=== PATIENT | female | born 1930 | race Caucasian/White ===

== ENCOUNTER 2019-08-16 10:15 | Inpatient (IN) ==
[2019-08-16] MEDS ORDERED: fentaNYL 100 MCG/2 ML VIAL IV ONE (10:35)
[2019-08-16] MEDS ORDERED: KETOROLAC 30 MG/ML VIAL IV ONE (10:35)
--- NOTE | 2019-08-16 10:40 | Emergency Department Note ---
Back Pain HPI - General Chief Complaint: Back Pain/Injury Stated Complaint: back pain Time Seen by Provider: 08/16/19 10:24 Source: patient Mode of arrival: ambulatory Limitations: no limitations - History of Present Illness HPI Narrative: 89-year-old female with a one-week plus history of upper back pain that radiates to her chest. I have seen her one time for this as well as Dr. lagunas and she is currently on Dilaudid 4 mg for this. however it is not helping her pain-she does report modest relief with Tylenol. She reports resistance to morphine and other narcotics. Pain is severe now 10 out of 10 and she cannot get comfortable in any position. Pain is worse under bilateral breasts. when I initially saw her about a week ago we did a chest pain work-up which included CT scan of the chest-this was all negative. She has not been eating much secondary to pain. They thought perhaps she was constipated and gave some mag citrate but having l arge bowel movement did not help much. She had a small bowel movement this morning that was essentially normal. She is able to urinate without difficulty. No trauma or fever. She is diagnosed with COPD now and her daughter reports that she is been having oxygen levels done at 82 and 84% at home. She is not on home oxygen but likely needs She is chronically anticoagulated on Eliquis for atrial fibrillation - Related Data Home Medications Medication Instructions Recorded Confirmed Calcium 600-D 1 each PO DAILY 02/09/19 08/10/19 apixaban 5 mg tablet 5 mg PO BID 02/09/19 08/10/19 metoprolol succinate 50 mg 50 mg PO BID 02/09/19 08/10/19 tablet,extended release 24 hr simvastatin 10 mg tablet 5 mg PO QHS 02/09/19 08/10/19 vitamins A,C,G-fyuo-trrnwg PO 02/09/19 07/07/19 magnesium citrate 125 mg capsule 125 mg PO QDAY cap 03/11/19 08/10/19 furosemide PO BID 07/07/19 07/07/19 nebulizer medication unknown #1 ea 07/07/19 07/07/19 Previous Rx's Medication Instructions Recorded fluticasone furoate 100 1 inh INHALATION QDAY #60 each 05/26/19 mcg-vilanterol 25 mcg/dose inhalation powder HYDROcodone/APAP 5/325MG [[place] 1 tab PO Q4HP PRN #12 tab 08/10/19 5-325Mg] Ondansetron [Zofran ODT] 4 mg SL Q4HP PRN #10 tab 08/10/19 Ondansetron [Zofran ODT] 4 mg SL Q4-6HP PRN #7 tab 08/12/19 Peg 3350/Na Sulf,Bicarb,Cl/KCl 4,000 ml PO ONCE #1 oral.sabrina 08/12/19 [Golytely] traMADol [Ultram] 50 mg PO Q6HP PRN #10 tab 08/12/19 HYDROmorphone HCL [Dilaudid] 4 mg PO Q4 #20 tab 08/13/19 Allergies Allergy/AdvReac Type Severity Reaction Status Date / Time No Known Drug Allergies Allergy Verified 08/16/19 10:19 Review of Systems All systems ED: reviewed and negative except as stated. Past Medical History - Past Medical History Attestation: Yes: The following information was validated with the patient. 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 However she is not diaphoretic; actually somewhat stoic. Normocephalic atraumatic. Conjunctive are clear sclerae white and icteric. No nasal discharge or congestion. Oropharynx pink and moist. Neck is supple without lymphadenopathy or thyromegaly. Heart is irregularly irregular rhythm but normal rate. I did not appreciate a murmur. Lungs are clear to auscultation bilaterally without wheezes rales rhonchi or respiratory distress. She is on nasal cannula oxygen here. +1 pedal edema bilaterally. Multiple bruises on her arms from the Eliquis. She is alert and able to answer questions appropriately. Somewhat irritable Limitations: no limitations Course Vital Signs Temperature 97.9 F 08/16/19 10:16 Pulse Rate 96 H 08/16/19 10:16 Respiratory Rate 20 08/16/19 10:16 Blood Pressure 140/94 08/16/19 10:16 Pulse Oximetry (%) 93 08/16/19 10:16 Temperature 97.9 F 08/16/19 10:16 Pulse Rate 91 H 08/16/19 15:16 Respiratory Rate 15 08/16/19 15:16 Blood Pressure 110/67 08/16/19 15:16 Pulse Oximetry (%) 100 08/16/19 15:16 Back Pain/Injury - Lab Data Lab results reviewed: Yes I reviewed the patient's lab results. Result diagrams: 08/16/19 10:45 08/16/19 10:45 Lab Results 08/16/19 08/16/19 08/16/19 Range/Units 10:45 10:45 10:45 WBC 9.6 (4.5-11.0) K/mcL RBC 3.72 L (4.00-5.20) M/mcL Hgb 10.6 L (12.0-15.0) g/dL Hct 32.5 L (36.0-48.0) % MCV 87.4 (80.0-100.0) fL MCH 28.6 (26.0-34.0) pg MCHC 32.7 (31.0-36.0) g/dL RDW 15.6 H (11.5-14.5) % Plt Count 251 (140-440) K/mcL MPV 8.4 (7.4-10.4) fL Gran % 77.5 (38.0-78.0) % Lymph % (Auto) 10.2 L (15.5-49.0) % Crane % (Auto) 10.6 (1.0-12.0) % Eos % (Auto) 1.2 (0.0-7.0) % Baso % (Auto) 0.5 (0.0-2.0) % Gran # 7.4 (1.8-8.0) K/mcL Lymph # (Auto) 1.0 L (1.5-4.8) K/mcL Crane # (Auto) 1.0 H (0.1-0.9) K/mcL Eos # (Auto) 0.1 (0.0-0.7) K/mcL Baso # (Auto) 0.1 (0.0-0.3) K/mcL Sodium 135 (133-145) mmol/L Potassium 4.9 (3.3-5.1) mmol/L Chloride 96 (96-108) mmol/L Carbon Dioxide 27 (22-30) mmol/L Anion Gap 12.0 (8-16) BUN 25 H (8-23) mg/dl Creatinine 1.1 (0.6-1.1) mg/dl GFR Calculation 45 Glucose 100 (70-105) mg/dL Calcium 9.0 (8.6-10.4) mg/dl Total Bilirubin 0.5 (0.0-1.0) mg/dL AST 21 (0-37) U/l ALT 17 (0-40) U/l Alkaline Phosphatase 78 (39-117) U/L Troponin T < 0.01 (0-0.03) ng/ml C-Reactive Protein 6.7 H (0.0-0.8) mg/dl NT-Pro-B Natriuret Pep (0-450) pg/ml Total Protein 7.0 (5.9-8.4) gm/dL Albumin 3.5 (3.2-5.2) gm/dL Globulin 3.5 (2.2-3.7) gm/dL Albumin/Globulin Ratio 1.0 (1.0-2.3) Lipase 30 (7-60) U/L 08/16/19 Range/Units 10:45 WBC (4.5-11.0) K/mcL RBC (4.00-5.20) M/mcL Hgb (12.0-15.0) g/dL Hct (36.0-48.0) % MCV (80.0-100.0) fL MCH (26.0-34.0) pg MCHC (31.0-36.0) g/dL RDW (11.5-14.5) % Plt Count (140-440) K/mcL MPV (7.4-10.4) fL Gran % (38.0-78.0) % Lymph % (Auto) (15.5-49.0) % Crane % (Auto) (1.0-12.0) % Eos % (Auto) (0.0-7.0) % Baso % (Auto) (0.0-2.0) % Gran # (1.8-8.0) K/mcL Lymph # (Auto) (1.5-4.8) K/mcL Crane # (Auto) (0.1-0.9) K/mcL Eos # (Auto) (0.0-0.7) K/mcL Baso # (Auto) (0.0-0.3) K/mcL Sodium (133-145) mmol/L Potassium (3.3-5.1) mmol/L Chloride (96-108) mmol/L Carbon Dioxide (22-30) mmol/L Anion Gap (8-16) BUN (8-23) mg/dl Creatinine (0.6-1.1) mg/dl GFR Calculation Glucose (70-105) mg/dL Calcium (8.6-10.4) mg/dl Total Bilirubin (0.0-1.0) mg/dL AST (0-37) U/l ALT (0-40) U/l Alkaline Phosphatase (39-117) U/L Troponin T (0-0.03) ng/ml C-Reactive Protein (0.0-0.8) mg/dl NT-Pro-B Natriuret Pep 6443.0 H (0-450) pg/ml Total Protein (5.9-8.4) gm/dL Albumin (3.2-5.2) gm/dL Globulin (2.2-3.7) gm/dL Albumin/Globulin Ratio (1.0-2.3) Lipase (7-60) U/L - Radiology Data Radiology results reviewed: Yes I reviewed the patient's radiology results. Thoracic MRI shows T7 acute osteoporotic fracture and we see fluid in her lungs as well so chest x-ray is ordered Chest x-ray shows evidence of new CHF with pleural effusion Disposition Pt seen by [employer]PER[employer]PAR[employer]/PA only: No Clinical Impression: Chronic anticoagulation, Pleural effusion, Hypoxia CHF (congestive heart failure) Qualifiers: Heart failure type: unspecified Heart failure chronicity: acute on chronic Qualified Code(s): I50.9 - Heart failure, unspecified Compression fracture of T7 vertebra Qualifiers: Encounter type: subsequent encounter Fracture healing: with delayed healing Qualified Code(s): S22.060G - Wedge compression fracture of T7-T8 vertebra, subsequent encounter for fracture with delayed healing Atrial fibrillation Qualifiers: Atrial fibrillation type: unspecified persistent Qualified Code(s): I48.19 - Other persistent atrial fibrillation; I48.1 - Persistent atrial fibrillation Summary: I discussed this case with Dr. Chapa who initially feel the patient complaint. He recommended MRI of the thoracic spine which we will accomplish today. In the meantime we will give her some fentanyl and Toradol. Laboratory work-up as well She required oxygen here for O2 saturations in the high 80s at rest at times MRI of the thoracic spine shows T7 acute osteoporotic fracture. She did get some relief with the fentanyl and Toradol. She received a milligram of Ativan as well for claustrophobia and the MRI. MRI also shows pleural effusions so chest x-ray is ordered along with troponin and BNP. Furosemide is ordered 40 mg on top of her normal 20. Additional history is noted that patient is up about 20 pounds above her normal at home weight Chest x-ray shows pleural effusion on the right-pulmonary vascular prominence. Evidence of new CHF. She was able to urinate more with furosemide I discussed the case with Dr. Killian, interventional pain business consultant. He agreed to consult on the patient and possibly do vertebroplasty on her in 48 hours but we will need to hold her Eliquis I discussed the case with Dr. Wilson, our hospitalist. He agreed to accept the patient for further care and evaluation in the hospital-she requires hospitaliz ation for acute on chronic CHF with hypoxia and pleural effusions. She will get further care for her vertebral compression fracture at the time as well Disposition: Xfer As Inpt ([facility]) Condition: Serious Referrals: Mikki Huang MD [Primary Care Provider] -
[2019-08-16 11:12] LABS: Basophils # (Auto) 0.1 K/mcL (0.0-0.3); Basophils % (Auto) 0.5 % (0.0-2.0); Eosinophils # (Auto) 0.1 K/mcL (0.0-0.7); Eosinophils % (Auto) 1.2 % (0.0-7.0); Granulocytes % (Auto) 77.5 % (38.0-78.0); Hematocrit 32.5 % (36.0-48.0); Hemoglobin 10.6 g/dL (12.0-15.0); Lymphocytes % (Auto) 10.2 % (15.5-49.0); Mean Cell Volume 87.4 fL (80.0-100.0); Mean Corpuscular HGB Conc 32.7 g/dL (31.0-36.0); Mean Platelet Volume 8.4 fL (7.4-10.4); Monocytes % (Auto) 10.6 % (1.0-12.0); Platelet Count 251 K/mcL (140-440); RBC 3.72 M/mcL (4.00-5.20); Red Cell Distribution Width 15.6 % (11.5-14.5); WBC 9.6 K/mcL (4.5-11.0)
[2019-08-16 11:30] LABS: ALT/SGPT 17 U/l (0-40); AST/SGOT 21 U/l (0-37); Albumin 3.5 gm/dL (3.2-5.2); Alkaline Phosphatase 78 U/L (39-117); Bilirubin,Total 0.5 mg/dL (0.0-1.0); Blood Urea Nitrogen 25 mg/dl (8-23); C-Reactive Protein 6.7 mg/dl (0.0-0.8); Carbon Dioxide 27 mmol/L (22-30); Chloride 96 mmol/L (96-108); Globulin 3.5 gm/dL (2.2-3.7); Glomerular Filtration Rate 45; Glucose 100 mg/dL (70-105)
[2019-08-16] MEDS ORDERED: LORazepam 2 MG/ML VIAL IV ONE (11:36)
--- NOTE | 2019-08-16 13:13 | Magnetic Resonance Report ---
CLINICAL INFORMATION: Known osteoporosis. Acute mid thoracic pain with anterior chest radiation COMPARISON: Chest CTA 08/10/2019 and chest x-ray 08/09/2019 TECHNIQUE: Sagittal T2, sagittal T1 FLAIR, sagittal STIR and axial T2 images were acquired of the thoracic spine. FINDINGS: Moderate T7 compression fracture with approximately 50% loss vertebral height. There is edema throughout the vertebral body extending to pedicle roots appreciated indicating the fracture is acute.. It is anatomically aligned.. Minimal chronic wedging of the T3-T6 T8-T9 vertebral bodies is unchanged. There is normal marrow signal at each of these remaining vertebral bodies compatible with mild chronic osteoporotic compression fractures. Accentuation of the normal kyphotic curve due to the thoracic vertebral wedging is unchanged. The thoracic cord is normal in contour and caliber with homogeneous signal. All thoracic discs to mild degeneration, but no evidence of disc extrusion or protrusion. The central canal, lateral recess and IV foraminal are normal with at each level. 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 Soft tissues are significant for moderate right and small left pleural effusion which are new from plain films one week ago 08/10/2019 IMPRESSION: 1. Moderate T7 acute osteoporotic compression fracture with approximately 50% loss of vertebral height. This should be the reason for acute mid back pain with anterior chest radiation. Mild chronic compression fractures at T3-T6 and T8-T9 are all stable radiographically with normal marrow signal 2. Moderate right and small left pleural effusion - new from a chest x-ray only one week prior. Suggest: repeat two view chest x-ray to ensure the absence of CHF or other process Interpreted and Authenticated by: Andre Chapa 08/16/19
[2019-08-16] MEDS ORDERED: FUROSEMIDE 40 MG/4 ML VIAL IV ONE ×2 (13:25→20:30)
--- NOTE | 2019-08-16 13:50 | XRay Report ---
CLINICAL INFORMATION: CHF COMPARISON: 08/10/2019 FINDINGS: The heart is mildly enlarged - increased previous study. Mitral annular calcification again noted. Mediastinum is unremarkable. The pulmonary vessels are now mildly distended and there is now mild interstitial edema. Small right and tiny left pleural effusions noted. IMPRESSION: Mild/moderate CHF - new Interpreted and Authenticated by: Andre Chapa 08/16/19
[2019-08-16] MEDS ORDERED: METHOCARBAMOL 1,000 MG/10 ML VIAL IV PRN (16:03)
[2019-08-16] MEDS ORDERED: METOPROLOL TARTRATE 5 MG/5 ML VIAL IV PRN (16:03)
[2019-08-16] MEDS ORDERED: LIDOCAINE PATCH TOPICAL SCH (16:03)
[2019-08-16] MEDS ORDERED: ACETAMINOPHEN 650 MG/65 ML BOTTLE IV PRN (16:04)
--- NOTE | 2019-08-16 16:11 | Internal Med History&Physical ---
Medical - H&P: HPI Patient information: Note initiated : 08/16/19 at 4:06 pm Service Date, if different from initiated Date: [] Patient: Lana Leavitt 89 y/o F admitted on for back pain. Chief Complaint: [] History of present illness: Ms. Leavitt is a 89 year old F Who presents the ED again for back pain radiating to her chest. She been in and out of the ER several times the past week for complaints of abdominal pain back pain chest pain. She said CT of the chest and as well as abdominal films ultr asound and lumbar MRI images show degenerative joint and no other acute pathology patient was treated for constipation. She presents today because she just has the severe back pain which she rated 10 out of 10. She is also more short of breath which has been progressing over the past few weeks. But is made worse by the acute pain. She is diagnosed with H fibrillation CHF a year ago at [facility]. In the ED here the MRI of the thoracic spine showed pleural effusions and x-ray was done which showed edema. Per the daughter she has had more edema in her thighs lately. She has COPD and refuses to be evaluated for home oxygen though she has a family members occasionally short of breath. Oxygen at home has been as low as 86 and typically is 88-91. In the ED they recorded oxygen saturation of the lower 80s. The thoracic MRI showed acute T7 fracture. Case was also discussed with Dr. Ruano for potential vertebroplasty eventually. Troponin was unremarkable. She reports that she first noticed the pain in the back when she was doing dishes a week ago, he was bending over at that time. She had occasional nausea from the pain and sweats. She has some pain in the chest wall under the left breast Review of Systems: Pertinent positives as above. Denies headache/fever/chills/vomiting/abdominal pain/cough/diarrhea. Remaining 10 point review of system reviewed negative Medical - H&P: [facility] Medical history: Medical History (Last Reviewed 07/07/19 @ 11:08 by GEMMA Richardson) History of tobacco use (Chronic) Age-related macular degeneration (Chronic) Persistent atrial fibrillation (Chronic) Hemorrhoids (Chronic) Adenomatous polyp (Chronic) Osteoporosis (Chronic ~12/31/18) Actinic keratosis (Chronic ~12/31/18) COPD exacerbation (Chronic) COPD (chronic obstructive pulmonary disease) (Chronic) Macular degeneration (Chronic) Head injury (Chronic ~194) Premature ventricular contractions (Chronic) Osteoarthritis (Chronic) Mild mitral regurgitation (Chronic) Hyperlipidemia (Chronic) Paroxysmal atrial fibrillation (Chronic) Shortness of breath (Chronic) Chest pain (Chronic) Atrial fibrillation (Chronic) CHF (congestive heart failure) (Acute) Heart disease (Acute) Hypertension (Acute) Past Surgical History (Last Reviewed 07/07/19 @ 11:08 by GEMMA Richardson) History of appendectomy (Chronic ~1947) History of back surgery (Chronic) History of bladder surgery (Chronic ~2001) History of cardiac cath (Chronic) History of colonoscopy (Chronic) History of dilatation and curettage (Chronic ~1977) History of hysterectomy (Chronic ~2000) History of left heart catheterization (Chronic) History of repair of rotator cuff (Chronic ~2004) History of surgery (Chronic ~1993) History of surgery (Chronic ~1967) History of tonsillectomy and adenoidectomy (Chronic ~1948) History of tonsillectomy (Inactive ~194) Family History (Last Reviewed 07/07/19 @ 11:08 by GEMMA Richardson) Mother No problems noted. Other Family history of Alzheimer's disease Family history of CHF (congestive heart failure) Family history of chronic obstructive lung disease Family history of heart disease Family history of multiple sclerosis Social History (Last Updated 07/07/19 @ 11:11 by GEMMA Richardson) Patient quit smoking in 2018 drinks alcohol rarely does not use a cane or walker to ambulate normally but is been using lately. Lives at home with her Medical - H&P: Meds Home Medications Medication Instructions Recorded Confirmed Type Calcium 600-D 1 each PO DAILY 02/09/19 08/16/19 History apixaban 5 mg tablet 5 mg PO BID 02/09/19 08/16/19 History metoprolol succinate 50 mg 50 mg PO BID 02/09/19 08/16/19 History tablet,extended release 24 hr simvastatin 10 mg tablet 5 mg PO QHS 02/09/19 08/16/19 History vitamins A,C,A-rkpp-kbtcmi PO 02/09/19 07/07/19 History magnesium citrate 125 mg capsule 125 mg PO QDAY cap 03/11/19 08/16/19 History fluticasone furoate 100 1 inh INHALATION QDAY #60 each 05/26/19 08/16/19 Rx mcg-vilanterol 25 mcg/dose inhalation powder furosemide 20 mg PO BID 07/07/19 08/16/19 History nebulizer medication unknown #1 ea 07/07/19 07/07/19 History HYDROcodone/APAP 5/325MG [[place] 1 tab PO Q4HP PRN #12 tab 08/10/19 08/16/19 Rx 5-325Mg] Ondansetron [Zofran ODT] 4 mg SL Q4HP PRN #10 tab 08/10/19 08/16/19 Rx Ondansetron [Zofran ODT] 4 mg SL Q4-6HP PRN #7 tab 08/12/19 08/16/19 Rx Peg 3350/Na Sulf,Bicarb,Cl/KCl 4,000 ml PO ONCE #1 oral.sabrina 08/12/19 08/16/19 Rx [Golytely] traMADol [Ultram] 50 mg PO Q6HP PRN #10 tab 08/12/19 08/16/19 Rx HYDROmorphone HCL [Dilaudid] 4 mg PO Q4 #20 tab 08/13/19 08/16/19 Rx Fluticasone/Vilanterol [[place] 1 puff PO DAILY 08/16/19 08/16/19 History Ellipta 100-25 Mcg INH] Sennosides [Senna Laxative] 8.6 mg PO ONCE 08/16/19 08/16/19 History Allergies Allergy/AdvReac Type Severity Reaction Status Date / Time No Known Drug Allergies Allergy Verified 08/16/19 10:19 Medical - H&P: Exam - Constitutional Vitals: Temp Pulse Resp BP Pulse Ox 97.9 F 92 H 15 127/81 100 08/16/19 10:16 08/16/19 15:42 08/16/19 15:42 08/16/19 15:42 08/16/19 15:42 Medical - H&P: Reslt - Labs CBC & Chem 7: 08/16/19 10:45 08/16/19 10:45 Labs: Short CBC 08/16/19 Range/Units 10:45 WBC 9.6 (4.5-11.0) K/mcL Hgb 10.6 L (12.0-15.0) g/dL Hct 32.5 L (36.0-48.0) % Plt Count 251 (140-440) K/mcL BMP 08/16/19 10:45 Sodium 135 Potassium 4.9 Chloride 96 Carbon Dioxide 27 BUN 25 H Creatinine 1.1 Glucose 100 Calcium 9.0 Cardiac Enzymes 08/16/19 Range/Units 10:45 Troponin T < 0.01 (0-0.03) ng/ml Liver Function 08/16/19 Range/Units 10:45 Total Bilirubin 0.5 (0.0-1.0) mg/dL AST 21 (0-37) U/l ALT 17 (0-40) U/l Alkaline Phosphatase 78 (39-117) U/L Albumin 3.5 (3.2-5.2) gm/dL - Impressions Thoracic MRI showing acute fracture T7 and old compression fractures Medical - H&P: A/P - Narrative A/P Narrative: A: *Acute on chronic diastolic CHF: -follows with Dr. Orosco, is on toprol and lasix *Hypoxic respiratory failure: 2/2 above *Acute T7 compression Fx and chronic comp fx's: *Intractable back pain: 2/2 above *COPD: likely needs home oxygen, but pt has been resistant *Obesity: *anemia, chronic: *Afib: on Eliquis and Toprol * P: -iv lasix -monitor i/o's weights -echo pending -BB -wean oxygen -prn nebs -RT to assess for home O2 prior to d/c if goes home instead of SNF, likely needs SNF -lidoderm patch, Fentanyl patch, robaxin prn, oxycodone for breakthrough, Tylenol prn -per daughter, narcotics do not seem to typically take effect with her, usually requires higher doses -TLSO brace prn -Dr Ruano aware of pt, if pain unable to be controlled will discuss with him again, potential for vertebroplasty -bowel regimen -pt/ot -CM for placement -ppx: home eliquis
[2019-08-16] MEDS ORDERED: POLYETHYLENE GLYCOL 3350 17 GM PACKET PO PRN (16:26)
[2019-08-16] MEDS ORDERED: IPRATROPIUM/ALBUTEROL 3 ML AMPUL.NEB NEB PRN (16:26)
[2019-08-16] MEDS ORDERED: LACTULOSE 20 GM/30 ML ORAL.SOL PO PRN (16:26)
[2019-08-16] MEDS ORDERED: POTASSIUM CHLORIDE 40 MEQ in DEXTROSE 5% IN WATER 500 ML IV PRN (16:26)
[2019-08-16] MEDS ORDERED: traMADol 50 MG TABLET PO PRN (16:26)
[2019-08-16] MEDS ORDERED: POTASSIUM CHLORIDE 20 MEQ TABLET PO PRN ×2 (16:26)
[2019-08-16] MEDS ORDERED: ONDANSETRON 4 MG/2 ML VIAL IV PRN (16:26)
[2019-08-16] MEDS ORDERED: MAGNESIUM CITRATE 300 ML ORAL.SOL PO PRN (16:26)
[2019-08-16] MEDS ORDERED: PROMETHAZINE 25 MG TABLET PO PRN (16:26)
[2019-08-16] MEDS ORDERED: MAGNESIUM SULFATE 2 GM/50 ML BAG IV PRN (16:26)
[2019-08-16] MEDS ORDERED: fentaNYL 25 MCG PATCH TOPICAL SCH ×2 (16:30→17:00)
[2019-08-16] MEDS ORDERED: fentaNYL 12 MCG PATCH TOPICAL SCH (17:15)
[2019-08-16] MEDS: LIDOCAINE PATCH TOPICAL SCH (17:28)
[2019-08-16] MEDS: HYDROmorphone 2 MG/ML VIAL IV PRN ×2 (19:13→21:14)
[2019-08-16] MEDS ORDERED: SENNOSIDES 1 TABLET PO PRN (21:00)
[2019-08-16] MEDS ORDERED: FUROSEMIDE 20 MG PO SCH (21:00)
[2019-08-16] MEDS ORDERED: METOPROLOL SUCCINATE 50 MG TAB.XL.24H PO SCH (21:00)
[2019-08-16] MEDS: SIMVASTATIN 10 MG TABLET PO SCH (21:02)
[2019-08-16] MEDS: APIXABAN 5 MG TABLET PO SCH (21:02)
[2019-08-16] MEDS: DOCUSATE SODIUM 100 MG CAPSULE PO SCH (21:02)
[2019-08-16] MEDS: 0.9 % SODIUM CHLORIDE 10 ML SYRINGE IV SCH (21:03)
[2019-08-17] MEDS: HYDROmorphone 2 MG/ML VIAL IV PRN ×5 (02:08→22:31)
[2019-08-17] MEDS: 0.9 % SODIUM CHLORIDE 10 ML SYRINGE IV SCH ×5 (05:14→22:10)
[2019-08-17 05:49] LABS: Basophils # (Auto) 0.1 K/mcL (0.0-0.3); Eosinophils # (Auto) 0.4 K/mcL (0.0-0.7); Eosinophils % (Auto) 4.6 % (0.0-7.0); Granulocytes % (Auto) 67.8 % (38.0-78.0); Hematocrit 31.7 % (36.0-48.0); Hemoglobin 10.5 g/dL (12.0-15.0); Lymphocytes # (Auto) 1.1 K/mcL (1.5-4.8); Mean Cell Volume 87.8 fL (80.0-100.0); Mean Corpuscular HGB Conc 33.1 g/dL (31.0-36.0); Mean Platelet Volume 8.9 fL (7.4-10.4); Monocytes % (Auto) 12.6 % (1.0-12.0); Platelet Count 227 K/mcL (140-440); RBC 3.61 M/mcL (4.00-5.20); Red Cell Distribution Width 15.6 % (11.5-14.5)
[2019-08-17 06:29] LABS: ALT/SGPT 14 U/l (0-40); AST/SGOT 18 U/l (0-37); Albumin 3.1 gm/dL (3.2-5.2); Alkaline Phosphatase 72 U/L (39-117); Bilirubin,Direct < 0.2 mg/dL (0.0-0.3); Bilirubin,Total 0.5 mg/dL (0.0-1.0); Blood Urea Nitrogen 25 mg/dl (8-23); Calcium 8.9 mg/dl (8.6-10.4); Carbon Dioxide 30 mmol/L (22-30); Chloride 97 mmol/L (96-108); Glomerular Filtration Rate 40; Glucose 85 mg/dL (70-105); Lactate Dehydrogenase 241 U/L (94-250); Phosphorous 3.8 mg/dL (2.7-4.5); Triglycerides 84 mg/dl (<150); Uric Acid 7.6 mg/dL (2.5-8.0)
--- NOTE | 2019-08-17 07:47 | Internal Med Progress Note ---
Medical - PN: Subj Patient information: Note initiated : 08/17/19 at 7:40 am Service Date, if different from initiated Date: [] Patient: Lana Leavitt 89 y/o F admitted on 08/16/19 for back pain. Chief Complaint: [] Interval history: Ms. Leavitt is a 89 year old F Who presents the ED again for back pain radiating to her chest. She been in and out of the ER several times the past week for complaints of abdominal pain back pain chest pain. She said CT of the chest and as well as abdominal films ultra sound and lumbar MRI images show degenerative joint and no other acute pathology patient was treated for constipation. She presents today because she just has the severe back pain which she rated 10 out of 10. She is also more short of breath which has been progressing over the past few weeks. But is made worse by the acute pain. She is diagnosed with H fibrillation CHF a year ago at [place]. In the ED here the MRI of the thoracic spine showed pleural effusions and x-ray was done which showed edema. Per the daughter she has had more edema in her thighs lately. She has COPD and refuses to be evaluated for home oxygen though she has a family members occasionally short of breath. Oxygen at home has been as low as 86 and typically is 88-91. In the ED they recorded oxygen saturation of the lower 80s. The thoracic MRI showed acute T7 fracture. Case was also discussed with Dr. Ruano for potential vertebroplasty eventually. Troponin was unremarkable. She reports that she first noticed the pain in the back when she was doing dishes a week ago, he was bending over at that time. She had occasional nausea from the pain and sweats. She has some pain in the chest wall under the left breast 08/17 Seem to sleep well last night. But complains of pain in her back this morning and appears uncomfortable. She has shortness of breath. She says about the same as yesterday. Good urine output overnight. Chest x-ray with improved. Denies cough. Review of Systems: denies headache/fever/chills/nausea/vomiting/chest or abdominal pain/cough/diarrhea. Otherwise see above. - Constitutional Vitals: Vital Signs Temp Pulse Resp BP Pulse Ox 98.8 F 93 H 20 98/74 99 08/17/19 04:00 08/16/19 21:41 08/17/19 04:00 08/17/19 04:00 08/17/19 04:00 Period Temp Pulse Resp BP Sys/Ding Pulse Ox Last 24 Hr 97.4 F-98.8 F 72-146 10-23 92-141/59-101 93-100 Intake and Output 08/16/19 08/17/19 08/17/19 21:59 05:59 13:59 Intake Total 240 220 Output Total 975 975 Balance -735 -755 Weight 81.25 kg Intake & Output: Intake & Output 08/16/19 08/17/19 08/17/19 21:59 05:59 13:59 Intake Total 240 220 Output Total 975 975 Balance -735 -755 Weight 81.25 kg Intake: Oral 240 220 Output: Urine Catheter Amount 300 975 Void Amount 675 Other: Meal Dinner Percent of Meal Consumed 50% Feeding Ability Needs Supervision Urine Appearance Clear Clear Uretheral (Alonso) Clear Urine Color Pale Pale Uretheral (Alonso) Pale Exam: General: Alert, Awake, No acute Distress, obese Eyes/N/T: EOMI, Head/Neck: neck supple, JVD CV: irreg irreg, No murmurs, Pulm: Clear b/l, no wheezing/rhonchi/rales Abd: soft, nontender, +BS x4 Ext: no clubbing/cyanosis, 1+ b/l LE edema Neuro: Alert, no focal deficits, moves all extremities, Skin: warm/dry Medical - PN: Obj Da - Labs CBC & Chem 7: 08/17/19 03:53 08/17/19 03:53 Labs: Abnormal Lab Results 08/17/19 08/17/19 08/16/19 03:53 03:53 10:45 RBC 3.61 L Hgb 10.5 L Hct 31.7 L RDW 15.6 H Lymph % (Auto) 14.0 L [place] % (Auto) 12.6 H Lymph # (Auto) 1.1 L [place] # (Auto) 1.0 H BUN 25 H Creatinine 1.2 H C-Reactive Protein NT-Pro-B Natriuret Pep 6443.0 H Albumin 3.1 L 08/16/19 08/16/19 10:45 10:45 RBC 3.72 L Hgb 10.6 L Hct 32.5 L RDW 15.6 H Lymph % (Auto) 10.2 L [place] % (Auto) Lymph # (Auto) 1.0 L [place] # (Auto) 1.0 H BUN 25 H Creatinine C-Reactive Protein 6.7 H NT-Pro-B Natriuret Pep Albumin Meds: Medications Albuterol/Ipratropium (Duoneb) 3 ml NEB Q4HP PRN PRN Reason: Shortness Of Breath Apixaban (Eliquis) 5 mg PO BID [facility] Last Admin: 08/16/19 21:02 Dose: 5 mg Documented by: Docusate Sodium (Colace) 100 mg PO BID [facility] Last Admin: 08/16/19 21:02 Dose: 100 mg Documented by: Fentanyl (Duragesic) 12 mcg TOPICAL Q72H [facility] Furosemide (Lasix) 40 mg IV BIDD [facility] Hydromorphone HCl (Dilaudid) 0 mg IV Q2HP PRN PRN Reason: Pain Last Admin: 08/17/19 05:47 Dose: 0.5 mg Documented by: Acetaminophen (Ofirmev) 650 mg in 65 mls @ 130 mls/hr IV Q6HP PRN; Protocol PRN Reason: PAIN/FEVER > 101 Potassium Chloride 40 meq/ (Dextrose) 520 mls @ 130 mls/hr IV UD PRN PRN Reason: Potassium < 3 Magnesium Sulfate (Magnesium Sulfate) 2 gm in 50 mls @ 50 mls/hr IV UD PRN PRN Reason: Magnesium </= 1.6 Lactulose (Cephulac) 10 gm PO DAILYP PRN PRN Reason: Constipation Lidocaine (Lidoderm) 1 patch TOPICAL DAILY@1000 [facility] Last Admin: 08/16/19 17:28 Dose: 1 patch Documented by: Magnesium Citrate (Citroma) 125 ml PO DAILYP PRN PRN Reason: Constipation Methocarbamol (Robaxin) 750 mg IV Q6HP PRN PRN Reason: Muscle Spasm Metoprolol Succinate (Toprol Xl) 50 mg PO BID [facility] Last Admin: 08/16/19 21:02 Dose: 50 mg Documented by: Metoprolol Tartrate (Lopressor) 5 mg IV Q2HP PRN PRN Reason: Tachyarrhythmias HR>110 Ondansetron HCl (Zofran) 4 mg IV Q4HP PRN PRN Reason: Nausea And Vomiting Oxycodone HCl (Roxicodone) 5 mg PO Q4HP PRN PRN Reason: PAIN LEVEL 3-6 Fluticasone/Vilanterol [Breo Ellipta 100-25 Mcg Inhaler] 1 dose INH DAILY [facility] Polyethylene Glycol (Miralax) 17 gm PO DAILYP PRN PRN Reason: Constipation Polyethylene Glycol (Miralax) 17 gm PO DAILY [facility] Potassium Chloride (Kdur) 40 meq PO UD PRN PRN Reason: Potssium is 3-3.5 Potassium Chloride (Kdur) 40 meq PO UD PRN PRN Reason: Potassium < 3 Promethazine HCl (Phenergan) 0 mg PO Q6HP PRN PRN Reason: Nausea And Vomiting Senna (Senokot) 2 tab PO HSP PRN PRN Reason: Constipation Simvastatin (Zocor) 5 mg PO HS [facility] Last Admin: 08/16/19 21:02 Dose: 5 mg Documented by: Sodium Chloride (Saline Flush) 10 ml IV Q8 [facility] Last Admin: 08/17/19 05:14 Dose: 10 ml Documented by: Medical - PN: A/P - Time Spent With Patient Total time spent is greater than 50% in coordination of care (as documented) at patient's floor/unit and/or counseling patient: - Narrative A/P Narrative: A: *Acute on chronic diastolic CHF: -follows with Dr. Orosco, is on toprol and lasix *Hypoxic respiratory failure: 2/2 above -improving *Acute T7 compression Fx and chronic comp fx's: *Intractable back pain: 2/2 above *COPD: likely needs home oxygen, but pt has been resistant *Obesity: *anemia, chronic: *Afib: on Eliquis and Toprol *CKD III: P: -iv lasix -monitor i/o's weights -echo pending -BB -wean oxygen -prn nebs -RT to assess for home O2 prior to d/c if goes home instead of SNF, likely needs SNF -lidoderm patch, Fentanyl patch, robaxin prn, oxycodone for breakthrough, Tylenol prn -per daughter, narcotics do not seem to typically take effect with her, usually requires higher doses -TLSO brace prn -Dr Ruano aware of pt, if pain unable to be controlled will discuss with him again, potential for vertebroplasty. Family asked to meet with him today, nurse to contact Dr. Whatley's office -bowel regimen -pt/ot -CM for placement -ppx: home eliquis Medical - PN: Qual - VTE Deep Vein Thrombosis/Pulmonary Embolism Present on Admission: No
[2019-08-17] MEDS ORDERED: FUROSEMIDE 40 MG/4 ML VIAL IV SCH (08:00)
[2019-08-17] MEDS: METOPROLOL TARTRATE 5 MG/5 ML VIAL IV PRN (08:03)
--- NOTE | 2019-08-17 08:14 | XRay Report ---
CLINICAL INFORMATION: f/u chf COMPARISON: 08/16/2019 FINDINGS: Heart has decreased and is now only mildly enlarged. Mitral annular calcification again seen. Mediastinum is normal. Pulmonary vessels have returned normal in caliber. Interstitial edema has nearly cleared. Small right pleural effusion persists IMPRESSION: Interval resolution of CHF. Small persistent right pleural effusion Interpreted and Authenticated by: Andre Chapa 08/17/19
[2019-08-17] MEDS: POLYETHYLENE GLYCOL 3350 17 GM PACKET PO SCH (08:30)
[2019-08-17] MEDS: APIXABAN 5 MG TABLET PO SCH (08:30)
[2019-08-17] MEDS: DOCUSATE SODIUM 100 MG CAPSULE PO SCH ×2 (08:30→20:04)
[2019-08-17] MEDS ORDERED: NON FORMULARY MEDICATION 1 DOSE MISCELL (Fluticasone/Vilanterol [Breo Ellipta 100-25 Mcg I PO SCH (09:00)
[2019-08-17] MEDS ORDERED: METOPROLOL SUCCINATE 25 MG TAB.XL.24H PO SCH (09:00)
[2019-08-17] MEDS ORDERED: METOPROLOL SUCCINATE 25 MG TAB.XL.24H PO ONE (09:15)
[2019-08-17] MEDS ORDERED: ALBUMIN HUMAN 12.5 GM/50 ML BAG IV ONE (09:25)
[2019-08-17] MEDS ORDERED: FUROSEMIDE 40 MG/4 ML VIAL IV ONE (09:25)
[2019-08-17] MEDS: ACETAMINOPHEN 650 MG/65 ML BOTTLE IV PRN ×2 (11:25→12:07)
[2019-08-17] MEDS: fentaNYL 25 MCG PATCH TOPICAL SCH (11:34)
[2019-08-17] MEDS: METHOCARBAMOL 1,000 MG/10 ML VIAL IV PRN ×2 (11:35→19:46)
[2019-08-17] MEDS: LIDOCAINE PATCH TOPICAL SCH (11:36)
[2019-08-17] MEDS: Fluticasone/Vilanterol [Breo Ellipta 100-25 Mcg Inhaler] INH SCH (11:37)
[2019-08-17] MEDS: oxyCODONE HCL 5 MG TABLET PO PRN ×2 (17:07→20:51)
[2019-08-17] MEDS: METOPROLOL SUCCINATE 50 MG TAB.XL.24H PO SCH (20:04)
[2019-08-17] MEDS: SIMVASTATIN 10 MG TABLET PO SCH (20:04)
[2019-08-18] MEDS: oxyCODONE HCL 5 MG TABLET PO PRN ×5 (00:32→21:47)
[2019-08-18] MEDS: 0.9 % SODIUM CHLORIDE 10 ML SYRINGE IV SCH ×4 (01:13→22:05)
[2019-08-18] MEDS: METHOCARBAMOL 1,000 MG/10 ML VIAL IV PRN ×4 (01:13→23:35)
[2019-08-18] MEDS: HYDROmorphone 2 MG/ML VIAL IV PRN ×3 (05:56→22:04)
[2019-08-18 06:14] LABS: ALT/SGPT 13 U/l (0-40); AST/SGOT 17 U/l (0-37); Alkaline Phosphatase 66 U/L (39-117); Bilirubin,Direct < 0.2 mg/dL (0.0-0.3); Bilirubin,Total 0.5 mg/dL (0.0-1.0); Blood Urea Nitrogen 20 mg/dl (8-23); Calcium 8.5 mg/dl (8.6-10.4); Carbon Dioxide 30 mmol/L (22-30); Chloride 97 mmol/L (96-108); Globulin 2.9 gm/dL (2.2-3.7); Glomerular Filtration Rate 57; Glucose 86 mg/dL (70-105); Lactate Dehydrogenase 270 U/L (94-250); Phosphorous 3.7 mg/dL (2.7-4.5); Triglycerides 74 mg/dl (<150); Uric Acid 7.5 mg/dL (2.5-8.0)
--- NOTE | 2019-08-18 07:55 | Internal Med Progress Note ---
Medical - PN: Subj Patient information: Note initiated : 08/18/19 at 7:53 am Service Date, if different from initiated Date: [] Patient: Lana Leavitt 89 y/o F admitted on 08/16/19 for back pain. Chief Complaint: [] Interval history: Ms. Leavitt is a 89 year old F Who presents the ED again for back pain radiating to her chest. She been in and out of the ER several times the past week for complaints of abdominal pain back pain chest pain. She said CT of the chest and as well as abdominal films ultr asound and lumbar MRI images show degenerative joint and no other acute pathology patient was treated for constipation. She presents today because she just has the severe back pain which she rated 10 out of 10. She is also more short of breath which has been progressing over the past few weeks. But is made worse by the acute pain. She is diagnosed with H fibrillation CHF a year ago at [place]. In the ED here the MRI of the thoracic spine showed pleural effusions and x-ray was done which showed edema. Per the daughter she has had more edema in her thighs lately. She has COPD and refuses to be evaluated for home oxygen though she has a family members occasionally short of breath. Oxygen at home has been as low as 86 and typically is 88-91. In the ED they recorded oxygen saturation of the lower 80s. The thoracic MRI showed acute T7 fracture. Case was also discussed with Dr. Ruano for potential vertebroplasty eventually. Troponin was unremarkable. She reports that she first noticed the pain in the back when she was doing dishes a week ago, he was bending over at that time. She had occasional nausea from the pain and sweats. She has some pain in the chest wall under the left breast 08/17 Seem to sleep well last night. But complains of pain in her back this morning and appears uncomfortable. She has shortness of breath. She says about the same as yesterday. Good urine output overnight. Chest x-ray with improved. Denies cough. 08/18-patient seen in room. No overnight events. Resting comfortably. Persistent back pain however much improved on continued fentanyl patch/Robaxin/Tylenol and lidocaine patch. Pain clinic Dr. Ruano aware of patient and will consult if patient does not improve. Await family meeting with Dr. Flinders. Stable labs and vitals - Constitutional Vitals: Vital Signs Temp Pulse Resp BP Pulse Ox 97.6 F 97 H 20 134/101 90 08/18/19 07:27 08/17/19 09:34 08/18/19 07:27 08/18/19 07:27 08/18/19 07:27 Period Temp Pulse Resp BP Sys/Ding Pulse Ox Last 24 Hr 97.6 F-98.8 F 97 16-20 97-134/65-101 90-97 Intake and Output 08/17/19 08/18/19 08/18/19 21:59 05:59 13:59 Intake Total 185 180 Output Total 500 850 Balance -315 -670 Weight 174 lb 6.4 oz Intake & Output: Intake & Output 08/17/19 08/18/19 08/18/19 21:59 05:59 13:59 Intake Total 185 180 Output Total 500 850 Balance -315 -670 Weight 174 lb 6.4 oz Intake: IV 65 Oral 120 180 Output: Urine Catheter Amount 500 850 Other: Meal Dinner Percent of Meal Consumed 50% Feeding Ability Assist with Tray Set Up Urine Appearance Clear Clear Uretheral (Alonso) Clear Urine Color Pale Bright Yellow Uretheral (Alonso) Pale Stool Size Smear Stool Color Brown General appearance: no acute distress, obese Exam: Alert oriented Minimal discomfort Nonlabored breathing No telemetry events Medical - PN: Obj Da - Labs CBC & Chem 7: 08/17/19 03:53 08/18/19 04:00 Labs: Abnormal Lab Results 08/18/19 08/17/19 08/17/19 04:00 03:53 03:53 RBC 3.61 L Hgb 10.5 L Hct 31.7 L RDW 15.6 H Lymph % (Auto) 14.0 L [place] % (Auto) 12.6 H Lymph # (Auto) 1.1 L [place] # (Auto) 1.0 H BUN 25 H Creatinine 1.2 H Calcium 8.5 L Lactate Dehydrogenase 270 H C-Reactive Protein NT-Pro-B Natriuret Pep Albumin 3.0 L 3.1 L 08/16/19 08/16/19 08/16/19 10:45 10:45 10:45 RBC 3.72 L Hgb 10.6 L Hct 32.5 L RDW 15.6 H Lymph % (Auto) 10.2 L [place] % (Auto) Lymph # (Auto) 1.0 L [place] # (Auto) 1.0 H BUN 25 H Creatinine Calcium Lactate Dehydrogenase C-Reactive Protein 6.7 H NT-Pro-B Natriuret Pep 6443.0 H Albumin Meds: Medications Albuterol/Ipratropium (Duoneb) 3 ml NEB Q4HP PRN PRN Reason: Shortness Of Breath Last Admin: 08/17/19 09:29 Dose: 3 ml Documented by: Docusate Sodium (Colace) 100 mg PO BID [facility] Last Admin: 08/17/19 20:04 Dose: 100 mg Documented by: Fentanyl (Duragesic) 25 mcg TOPICAL Q72H [facility] Last Admin: 08/17/19 11:34 Dose: 25 mcg Documented by: Hydromorphone HCl (Dilaudid) 0 mg IV Q2HP PRN PRN Reason: Pain Last Admin: 08/18/19 05:56 Dose: 0.5 mg Documented by: Acetaminophen (Ofirmev) 650 mg in 65 mls @ 130 mls/hr IV Q6HP PRN; Protocol PRN Reason: PAIN/FEVER > 101 Last Infusion: 08/17/19 18:37 Dose: Infused Documented by: Potassium Chloride 40 meq/ (Dextrose) 520 mls @ 130 mls/hr IV UD PRN PRN Reason: Potassium < 3 Magnesium Sulfate (Magnesium Sulfate) 2 gm in 50 mls @ 50 mls/hr IV UD PRN PRN Reason: Magnesium </= 1.6 Lactulose (Cephulac) 10 gm PO DAILYP PRN PRN Reason: Constipation Lidocaine (Lidoderm) 1 patch TOPICAL DAILY@1000 [facility] Last Admin: 08/17/19 11:36 Dose: 1 patch Documented by: Magnesium Citrate (Citroma) 125 ml PO DAILYP PRN PRN Reason: Constipation Methocarbamol (Robaxin) 750 mg IV Q6HP PRN PRN Reason: Muscle Spasm Last Admin: 08/18/19 01:13 Dose: 750 mg Documented by: Metoprolol Succinate (Toprol Xl) 50 mg PO BID [facility] Last Admin: 08/17/19 20:04 Dose: 50 mg Documented by: Metoprolol Tartrate (Lopressor) 5 mg IV Q2HP PRN PRN Reason: Tachyarrhythmias HR>110 Last Admin: 08/17/19 08:03 Dose: 5 mg Documented by: Ondansetron HCl (Zofran) 4 mg IV Q4HP PRN PRN Reason: Nausea And Vomiting Oxycodone HCl (Roxicodone) 5 mg PO Q4HP PRN PRN Reason: PAIN LEVEL 3-6 Last Admin: 08/18/19 07:32 Dose: 5 mg Documented by: Fluticasone/Vilanterol [Breo Ellipta 100-25 Mcg Inhaler] 1 dose INH DAILY [facility] Last Admin: 08/17/19 11:37 Dose: Not Given Documented by: Polyethylene Glycol (Miralax) 17 gm PO DAILYP PRN PRN Reason: Constipation Polyethylene Glycol (Miralax) 17 gm PO DAILY [facility] Last Admin: 08/17/19 08:30 Dose: 17 gm Documented by: Potassium Chloride (Kdur) 40 meq PO UD PRN PRN Reason: Potssium is 3-3.5 Potassium Chloride (Kdur) 40 meq PO UD PRN PRN Reason: Potassium < 3 Promethazine HCl (Phenergan) 0 mg PO Q6HP PRN PRN Reason: Nausea And Vomiting Senna (Senokot) 2 tab PO HSP PRN PRN Reason: Constipation Simvastatin (Zocor) 5 mg PO HS [facility] Last Admin: 08/17/19 20:04 Dose: 5 mg Documented by: Sodium Chloride (Saline Flush) 10 ml IV Q8 [facility] Last Admin: 08/18/19 05:08 Dose: 10 ml Documented by: Medical - PN: A/P - Time Spent With Patient Total time spent is greater than 50% in coordination of care (as documented) at patient's floor/unit and/or counseling patient: 25 - 35 minutes - Narrative A/P Narrative: A: * Acute T7 compression fracture-pain clinic Dr. Killian consulted for possible vertebroplasty. Currently on Robaxin/Lidoderm/fentanyl. Multimodal pain management. * Acute on chronic diastolic CHF: Well compensated. follows with Dr. Orosco, continue Lasix/beta-nahomi. Echocardiogram moderate pulmonary hypertension with preserved EF at 65% * Hypoxic respiratory failure: 2/2 above and a combination of COPD. On 2 L oxygen * Intractable back pain: 2/2 above * COPD: On 2 L oxygen. Patient does not use home oxygen. Continue bronchodilators * Obesity * anemia, chronic * Afib: on Eliquis and Toprol * CKD III: * Prophylaxis on Eliquis Plan * Await pain clinic consult * Continue diuresis * Wean oxygen as tolerated * Pain management * per daughter, narcotics do not seem to typically take effect with her, usually requires higher doses * TLSO brace prn * Dr Ruano aware of pt, if pain unable to be controlled will discuss with him again, potential for vertebroplasty. Await family meeting with Dr. Ruano, * Continue PT OT * Case management coordinate transfer to SNF Medical - PN: Qual - VTE Deep Vein Thrombosis/Pulmonary Embolism Present on Admission: No
[2019-08-18] MEDS ORDERED: ENOXAPARIN 60 MG/0.6 ML SYRINGE SQ ONE (09:15)
[2019-08-18] MEDS: LIDOCAINE PATCH TOPICAL SCH (09:57)
[2019-08-18] MEDS: METOPROLOL SUCCINATE 50 MG TAB.XL.24H PO SCH ×2 (09:57→21:47)
[2019-08-18] MEDS: POLYETHYLENE GLYCOL 3350 17 GM PACKET PO SCH (09:57)
[2019-08-18] MEDS: DOCUSATE SODIUM 100 MG CAPSULE PO SCH ×2 (09:57→21:47)
[2019-08-18] MEDS: Fluticasone/Vilanterol [Breo Ellipta 100-25 Mcg Inhaler] INH SCH (10:13)
[2019-08-18 15:14] LABS: Appearance,Urine CLEAR; Bacteria,Urine 0 /hpf (0); Bilirubin,Urine NEG (NEG); Color,Urine STRAW; Culture Indicated,Urine NO; Glucose,Urine (UA) NEGATIVE (NEG); Ketones,Urine NEG (NEG); Leukocyte Esterase,Urine NEG /uL (NEG); Mucus,Urine FEW /hpf (0); Nitrate,Urine NEG (NEG); Protein,Urine NEG (NEG); Specific Gravity,Urine 1.008 (1.000-1.035); Urine Blood >=1.0 mg/dL (<0.03); Urine RBC < 1 /hpf (0-1); Urine Squamous Epithelial Cell 0 /hpf (0-4); Urine WBC 1 /hpf (0-4); Urobilinogen,Urine NEG (NEG)
[2019-08-18] MEDS: SIMVASTATIN 10 MG TABLET PO SCH (21:47)
[2019-08-18] MEDS: ACETAMINOPHEN 650 MG/65 ML BOTTLE IV PRN (21:48)
[2019-08-19] MEDS: oxyCODONE HCL 5 MG TABLET PO PRN ×5 (02:08→21:08)
[2019-08-19] MEDS: ACETAMINOPHEN 650 MG/65 ML BOTTLE IV PRN ×2 (03:45→12:13)
[2019-08-19] MEDS: HYDROmorphone 2 MG/ML VIAL IV PRN ×5 (03:45→16:34)
[2019-08-19] MEDS: 0.9 % SODIUM CHLORIDE 10 ML SYRINGE IV SCH ×3 (05:25→20:09)
[2019-08-19 05:38] LABS: Basophils # (Auto) 0.1 K/mcL (0.0-0.3); Basophils % (Auto) 0.9 % (0.0-2.0); Eosinophils # (Auto) 0.3 K/mcL (0.0-0.7); Eosinophils % (Auto) 3.9 % (0.0-7.0); Granulocytes % (Auto) 66.7 % (38.0-78.0); Hematocrit 30.9 % (36.0-48.0); Hemoglobin 10.3 g/dL (12.0-15.0); Lymphocytes # (Auto) 1.5 K/mcL (1.5-4.8); Lymphocytes % (Auto) 18.4 % (15.5-49.0); Mean Corpuscular HGB Conc 33.2 g/dL (31.0-36.0); Mean Platelet Volume 8.8 fL (7.4-10.4); Monocytes # (Auto) 0.8 K/mcL (0.1-0.9); Monocytes % (Auto) 10.1 % (1.0-12.0); Platelet Count 242 K/mcL (140-440)
[2019-08-19] MEDS ORDERED: ceFAZolin 2 GM in DEXTROSE 5% IN WATER 50 ML IV SCH (06:00)
[2019-08-19 06:02] LABS: ALT/SGPT 14 U/l (0-40); AST/SGOT 19 U/l (0-37); Albumin 3.1 gm/dL (3.2-5.2); Albumin/Globulin Ratio 1.1 (1.0-2.3); Alkaline Phosphatase 64 U/L (39-117); Bilirubin,Direct < 0.2 mg/dL (0.0-0.3); Bilirubin,Total 0.4 mg/dL (0.0-1.0); Blood Urea Nitrogen 16 mg/dl (8-23); Calcium 8.9 mg/dl (8.6-10.4); Carbon Dioxide 31 mmol/L (22-30); Chloride 99 mmol/L (96-108); Globulin 2.8 gm/dL (2.2-3.7); Glomerular Filtration Rate 50; Glucose 85 mg/dL (70-105); Lactate Dehydrogenase 250 U/L (94-250); Phosphorous 3.4 mg/dL (2.7-4.5); Triglycerides 74 mg/dl (<150); Uric Acid 6.8 mg/dL (2.5-8.0)
[2019-08-19] MEDS: METHOCARBAMOL 1,000 MG/10 ML VIAL IV PRN ×2 (06:41→12:49)
[2019-08-19] MEDS: Fluticasone/Vilanterol [Breo Ellipta 100-25 Mcg Inhaler] INH SCH (07:04)
[2019-08-19] MEDS ORDERED: PROPOFOL 200 MG/20 ML VIAL IV ONE (07:46)
[2019-08-19] MEDS ORDERED: fentaNYL 100 MCG/2 ML VIAL IV ONE (07:46)
[2019-08-19] MEDS ORDERED: LIDOCAINE W/EPI 1% 20 ML VIAL IJ ONE (08:05)
[2019-08-19] MEDS: POLYETHYLENE GLYCOL 3350 17 GM PACKET PO SCH (08:36)
[2019-08-19] MEDS: DOCUSATE SODIUM 100 MG CAPSULE PO SCH ×2 (08:37→20:08)
[2019-08-19] MEDS: METOPROLOL SUCCINATE 50 MG TAB.XL.24H PO SCH ×2 (08:37→20:08)
--- NOTE | 2019-08-19 09:15 | Brief Operative Note ---
Date of procedure: 08/19/19 Pre-op Diagnosis: Other (Osteoporotic compression fracture) Post-op diagnosis: same Procedure: Other (T7 vertebroplasty) Anesthesia: MAC Complications: none Surgeon: Maurice Ruano Estimated blood loss (cc): 5 Condition: stable Disposition: ICU
[2019-08-19] MEDS: LIDOCAINE PATCH TOPICAL SCH (09:19)
--- NOTE | 2019-08-19 09:54 | Operative Note ---
DATE OF OPERATION: 08/19/2019 PREOPERATIVE DIAGNOSIS: Intractable back pain secondary to osteoporotic compression fracture T7. POSTOPERATIVE DIAGNOSIS: Intractable back pain secondary to osteoporotic compression fracture T7. PROCEDURE: T7 vertebroplasty. SURGEON: Maurice Ruano MD ANESTHESIA: Monitored anesthesia care. ESTIMATED BLOOD LOSS: Less than 5 mL COMPLICATIONS: None. SUMMARY OF PROCEDURE: After informed consent, the patient was given prophylactic antibiotics and taken to the operating room where she was positioned prone on the OR table. Pressure points were protected. The thoracic region was prepped and draped in normal sterile manner. After adequate sedation utilizing fluoroscopy, landmarks were identified. A skin wheal was raised over the right T7 pedicle deep infiltration with 5 mL of 1% lidocaine with epinephrine 1:200,000. A 13 gauge 6 inch Jamshidi needle was directed downward contacting the right T7 pedicle. The trocar was advanced anteromedially under fluoroscopic guidance until the tip approached the anterior third of the vertebral body. Methyl methacrylate was then prepared using the [employer] system under fluoroscopic guidance while viewing laterally. Cement was injected. A total of 2 mL was used to fill the vertebral body. AP and lateral views were taken and the trocar was removed. Sterile dressings applied at the entrance site. The patient was positioned supine and taken back to the ICU in stable condition. CGF:heena Job ID: [id number] Doc ID: [id number] Maurice Ruano MD
[2019-08-19] MEDS ORDERED: fentaNYL 12 MCG PATCH TOPICAL SCH (10:00)
--- NOTE | 2019-08-19 10:11 | XRay Report ---
CLINICAL INFORMATION: VERTEBROPLASTY COMPARISON: Thoracic spine MRI 08/16/2019 FINDINGS: Digital images from the OR show a large bore needle extending through the left T7 pedicle with the tip of the needle within the T7 vertebral body. Final lateral images show barium methacrylate contained within the vertebral body IMPRESSION: T7 vertebroplasty with barium methacrylate confined to the T7 vertebral body - no extravasation Interpreted and Authenticated by: Andre Chapa 08/19/19
[2019-08-19] MEDS: APIXABAN 5 MG TABLET PO SCH ×2 (12:13→20:08)
[2019-08-19] MEDS: METOPROLOL TARTRATE 5 MG/5 ML VIAL IV PRN ×2 (16:57→17:45)
[2019-08-19] MEDS: SIMVASTATIN 10 MG TABLET PO SCH (20:08)
--- NOTE | 2019-08-19 21:42 | Internal Med Progress Note ---
Medical - PN: Subj Patient information: Note initiated : 08/19/19 at 9:42 pm Service Date, if different from initiated Date: [] Patient: Lana Leavitt 89 y/o F admitted on 08/16/19 for back pain. Chief Complaint: [] Interval history: Ms. Leavitt is a 89 year old F Who presents the ED again for back pain radiating to her chest. She been in and out of the ER several times the past week for complaints of abdominal pain back pain chest pain. She said CT of the chest and as well as abdominal films ultr asound and lumbar MRI images show degenerative joint and no other acute pathology patient was treated for constipation. She presents today because she just has the severe back pain which she rated 10 out of 10. She is also more short of breath which has been progressing over the past few weeks. But is made worse by the acute pain. She is diagnosed with H fibrillation CHF a year ago at [place]. In the ED here the MRI of the thoracic spine showed pleural effusions and x-ray was done which showed edema. Per the daughter she has had more edema in her thighs lately. She has COPD and refuses to be evaluated for home oxygen though she has a family members occasionally short of breath. Oxygen at home has been as low as 86 and typically is 88-91. In the ED they recorded oxygen saturation of the lower 80s. The thoracic MRI showed acute T7 fracture. Case was also discussed with Dr. Ruano for potential vertebroplasty eventually. Troponin was unremarkable. She reports that she first noticed the pain in the back when she was doing dishes a week ago, he was bending over at that time. She had occasional nausea from the pain and sweats. She has some pain in the chest wall under the left breast 08/17 Seem to sleep well last night. But complains of pain in her back this morning and appears uncomfortable. She has shortness of breath. She says about the same as yesterday. Good urine output overnight. Chest x-ray with improved. Denies cough. 08/18-patient seen in room. No overnight events. Resting comfortably. Persistent back pain however much improved on continued fentanyl patch/Robaxin/Tylenol and lidocaine patch. Pain clinic Dr. Ruano aware of patient and will consult if patient does not improve. Await family meeting with Dr. Flinders. Stable labs and vitals 08/19-patient underwent vertebroplasty T7 by Dr. Ruano. Currently on aggressive pain intervention including fentanyl/oxycodone/Tylenol/tramadol/lidocaine patch. Pain much improved. Able to ambulate. Mild radiation pain at the T7 dermatome. Family at bedside. Anticipate discharge in 24 hours if continues to improve clinically. Will follow-up with pain clinic as outpatient. - Constitutional Vitals: Vital Signs Temp Pulse Resp BP Pulse Ox 97.9 F 105 H 16 110/74 96 08/19/19 20:00 08/19/19 15:57 08/19/19 19:16 08/19/19 18:41 08/19/19 18:41 Period Temp Pulse Resp BP Sys/Ding Pulse Ox Last 24 Hr 97.9 F-98.9 F 87-105 14-20 99-142/55-126 91-100 Intake and Output 08/19/19 08/19/19 08/19/19 05:59 13:59 21:59 Intake Total 130 115 720 Output Total 275 2 375 Balance -145 113 345 Weight 180 lb Patient Weight 08/20/19 05:59 Weight 180 lb Intake & Output: Intake & Output 08/19/19 08/19/19 08/19/19 05:59 13:59 21:59 Intake Total 130 115 720 Output Total 275 2 375 Balance -145 113 345 Weight 180 lb Intake: IV 130 115 Ancef 2 gm In Dextrose 5% in 50 Water 50 ml @ 100 mls/hr IV PREOP [facility] Rx#:[id number] Oral 720 Output: Void Amount 275 2 375 Other: Meal Lunch Percent of Meal Consumed 25% Feeding Ability Independent Urine Appearance Clear Clear Urine Color Bright Yellow Pale Stool Size Small Moderate Small Stool Color Brown Brown Brown Stool Consistency Soft Soft Loose Formed Formed # Voids 1 # Bowel Movements 1 1 General appearance: no acute distress Exam: Alert oriented Nonlabored breathing Minimal anxiety Minimal discomfort No lymphedema Basilar crackles Medical - PN: Obj Da - Labs CBC & Chem 7: 08/19/19 03:44 08/19/19 03:44 Labs: Abnormal Lab Results 08/19/19 08/19/19 08/18/19 03:44 03:44 14:40 RBC 3.50 L Hgb 10.3 L Hct 30.9 L RDW 16.0 H Lymph % (Auto) Yell % (Auto) Lymph # (Auto) Yell # (Auto) Carbon Dioxide 31 H BUN Creatinine Calcium Lactate Dehydrogenase Albumin 3.1 L Urine Occult Blood >=1.0 A 08/18/19 08/17/19 08/17/19 04:00 03:53 03:53 RBC 3.61 L Hgb 10.5 L Hct 31.7 L RDW 15.6 H Lymph % (Auto) 14.0 L Yell % (Auto) 12.6 H Lymph # (Auto) 1.1 L Yell # (Auto) 1.0 H Carbon Dioxide BUN 25 H Creatinine 1.2 H Calcium 8.5 L Lactate Dehydrogenase 270 H Albumin 3.0 L 3.1 L Urine Occult Blood Meds: Medications Albuterol/Ipratropium (Duoneb) 3 ml NEB Q4HP PRN PRN Reason: Shortness Of Breath Last Admin: 08/17/19 09:29 Dose: 3 ml Documented by: Apixaban (Eliquis) 5 mg PO BID [facility] Last Admin: 08/19/19 20:08 Dose: 5 mg Documented by: Docusate Sodium (Colace) 100 mg PO BID [facility] Last Admin: 08/19/19 20:08 Dose: 100 mg Documented by: Fentanyl (Duragesic) 25 mcg TOPICAL Q72H [facility] Last Admin: 08/17/19 11:34 Dose: 25 mcg Documented by: Hydromorphone HCl (Dilaudid) 0 mg IV Q2HP PRN PRN Reason: Pain Last Admin: 08/19/19 16:34 Dose: 0.75 mg Documented by: Acetaminophen (Ofirmev) 650 mg in 65 mls @ 130 mls/hr IV Q6HP PRN; Protocol PRN Reason: PAIN/FEVER > 101 Last Infusion: 08/19/19 12:45 Dose: Infused Documented by: Potassium Chloride 40 meq/ (Dextrose) 520 mls @ 130 mls/hr IV UD PRN PRN Reason: Potassium < 3 Magnesium Sulfate (Magnesium Sulfate) 2 gm in 50 mls @ 50 mls/hr IV UD PRN PRN Reason: Magnesium </= 1.6 Lactulose (Cephulac) 10 gm PO DAILYP PRN PRN Reason: Constipation Lidocaine (Lidoderm) 1 patch TOPICAL DAILY@1000 [facility] Last Admin: 08/19/19 09:19 Dose: 1 patch Documented by: Magnesium Citrate (Citroma) 125 ml PO DAILYP PRN PRN Reason: Constipation Methocarbamol (Robaxin) 750 mg IV Q6HP PRN PRN Reason: Muscle Spasm Last Admin: 08/19/19 12:49 Dose: 750 mg Documented by: Metoprolol Succinate (Toprol Xl) 50 mg PO BID [facility] Last Admin: 08/19/19 20:08 Dose: 50 mg Documented by: Metoprolol Tartrate (Lopressor) 5 mg IV Q2HP PRN PRN Reason: Tachyarrhythmias HR>110 Last Admin: 08/19/19 17:45 Dose: 5 mg Documented by: Ondansetron HCl (Zofran) 4 mg IV Q4HP PRN PRN Reason: Nausea And Vomiting Oxycodone HCl (Roxicodone) 5 mg PO Q4HP PRN PRN Reason: PAIN LEVEL 3-6 Last Admin: 08/19/19 21:08 Dose: 5 mg Documented by: Fluticasone/Vilanterol [Breo Ellipta 100-25 Mcg Inhaler] 1 dose INH DAILY [facility] Last Admin: 08/19/19 07:04 Dose: Not Given Documented by: Polyethylene Glycol (Miralax) 17 gm PO DAILYP PRN PRN Reason: Constipation Polyethylene Glycol (Miralax) 17 gm PO DAILY [facility] Last Admin: 08/19/19 08:36 Dose: 17 gm Documented by: Potassium Chloride (Kdur) 40 meq PO UD PRN PRN Reason: Potssium is 3-3.5 Potassium Chloride (Kdur) 40 meq PO UD PRN PRN Reason: Potassium < 3 Promethazine HCl (Phenergan) 0 mg PO Q6HP PRN PRN Reason: Nausea And Vomiting Senna (Senokot) 2 tab PO HSP PRN PRN Reason: Constipation Simvastatin (Zocor) 5 mg PO HS [facility] Last Admin: 08/19/19 20:08 Dose: 5 mg Documented by: Sodium Chloride (Saline Flush) 10 ml IV Q8 [facility] Last Admin: 08/19/19 20:09 Dose: 10 ml Documented by: Medical - PN: A/P - Time Spent With Patient Total time spent is greater than 50% in coordination of care (as documented) at patient's floor/unit and/or counseling patient: 25 - 35 minutes - Narrative A/P Narrative: A: * Acute T7 compression fracture-status post T7 vertebroplasty by Dr. Ruano. Improved pain control postprocedure on continued opioid/tramadol and Tylenol. Continue multimodal pain management. * Acute on chronic diastolic CHF: Well compensated. follows with Dr. Orosco, continue Lasix/beta-nahomi. Echocardiogram moderate pulmonary hypertension with preserved EF at 65%. Continue diuresis * Hypoxic respiratory failure: 2/2 above and a combination of COPD. On 2 L oxygen as needed * Intractable back pain: 2/2 above * COPD: On 2 L oxygen. Patient does not use home oxygen. Continue bronchodilators * Obesity * anemia, chronic * Afib: on Eliquis and Toprol * CKD III: * Prophylaxis on Eliquis Plan * Continue pain management * Wean oxygen as tolerated and use during activity * PT OT/nutrition support * per daughter, narcotics do not seem to typically take effect with her, usually requires higher doses * TLSO brace prn(patient reluctant to use) * Recommend following up with pain clinic as outpatient on discharg * Case management coordinating transfer to SNF Medical - PN: Qual - VTE Deep Vein Thrombosis/Pulmonary Embolism Present on Admission: No
[2019-08-20] MEDS: oxyCODONE HCL 5 MG TABLET PO PRN ×3 (00:39→08:36)
[2019-08-20] MEDS: 0.9 % SODIUM CHLORIDE 10 ML SYRINGE IV SCH (05:08)
[2019-08-20] MEDS ORDERED: FLU VACC QS2019-20(6MOS UP)/PF 60 MCG/0.5 ML SYRINGE IM ONE (08:11)
[2019-08-20] MEDS: DOCUSATE SODIUM 100 MG CAPSULE PO SCH (08:34)
[2019-08-20] MEDS: APIXABAN 5 MG TABLET PO SCH (08:35)
[2019-08-20] MEDS: POLYETHYLENE GLYCOL 3350 17 GM PACKET PO SCH (08:36)
[2019-08-20] MEDS: METOPROLOL SUCCINATE 50 MG TAB.XL.24H PO SCH (08:36)
[2019-08-20] MEDS: fentaNYL 25 MCG PATCH TOPICAL SCH (08:37)
[2019-08-20] MEDS: LIDOCAINE PATCH TOPICAL SCH (08:37)
[2019-08-20] MEDS: Fluticasone/Vilanterol [Breo Ellipta 100-25 Mcg Inhaler] INH SCH (09:24)
--- NOTE | 2019-08-20 09:47 | Discharge Summary ---
Medical - DS: Prov Patient information: Note initiated : 08/20/19 at 9:44 am Service Date, if different from initiated Date: [] Patient: Lana Leavitt 89 y/o F admitted on 08/16/19 for back pain. Chief Complaint: [] Date of admission: 08/16/19 16:24 Discharge date: 08/20/19 Primary care physician: Mikki Huang Consults: 08/16/19 15:25 Consult to Physician [CONS] Stat Comment: Consulting Provider: Darren Wilson Reason For Exam: Physician to Consult Medical - DS: Meds - Discharge Medications Prescriptions: Docusate Sodium [Colace] 100 mg PO BID #60 cap Prescription Printed fentaNYL [Duragesic] 25 mcg TOPICAL Q72H #5 patch Prescription Printed Lidocaine [Lidoderm] 1 patch TOPICAL DAILY@1000 #20 patch Prescription Printed oxyCODONE HCL [Roxicodone] 5 mg PO Q4HP PRN #30 tab PRN Reason: Pain Level 3-6 Prescription Printed Active and Home Medications: Home Medications apixaban 5 mg tablet 5 mg PO BID 02/09/19 [History Confirmed 08/16/19 Last Taken 08/16/19 08:00] metoprolol succinate 50 mg tablet,extended release 24 hr 50 mg PO BID 02/09/19 [History Confirmed 08/16/19 Last Taken 08/16/19 08:00] simvastatin 10 mg tablet 5 mg PO QHS 02/09/19 [History Confirmed 08/16/19 Last Taken 08/15/19 21:00] fluticasone furoate 100 mcg-vilanterol 25 mcg/dose inhalation powder 1 inh INHALATION QDAY #60 each 05/26/19 [Rx Confirmed 08/16/19 Last Taken Unknown] nebulizer medication unknown 1 each INH DAILY #1 ea 07/07/19 [History Confirmed 08/20/19 Last Taken Unknown] Ondansetron [Zofran ODT] 4 mg SL Q4-6HP PRN #7 tab 08/12/19 [Rx Confirmed 08/16/19 Last Taken 08/11/19 08:00] Peg 3350/Na Sulf,Bicarb,Cl/KCl [Golytely] 4,000 ml PO ONCE #1 oral.sabrina 08/12/19 [Rx Confirmed 08/16/19 Last Taken 08/11/19 08:00] traMADol [Ultram] 50 mg PO Q6HP PRN #10 tab 08/12/19 [Rx Confirmed 08/16/19 Last Taken 08/10/19 10:00] Calcium Carbonate/Vitamin D3 [Calcium 600 + Vit D Tablet] 1 tab PO DAILY 08/16/19 [History Confirmed 08/16/19 Last Taken 08/16/19 08:00] Fluticasone/Vilanterol [Breo Ellipta 100-25 Mcg INH] 1 inh INH QAM 08/16/19 [History Confirmed 08/16/19 Last Taken 08/16/19 07:00] Furosemide [Lasix] 40 mg PO BID 08/16/19 [History Confirmed 08/16/19 Last Taken 08/16/19 08:00] Magnesium Citrate [Citroma] 125 ml PO DAILY 08/16/19 [History Confirmed 08/16/19 Last Taken 08/11/19 09:00] Potassium Chloride [Kdur] 10 meq PO HS 08/16/19 [History Confirmed 08/16/19 Last Taken 08/15/19 21:00] Restful Legs 1 tab SL QHS PRN 08/16/19 [History Confirmed 08/20/19 Last Taken 08/15/19 20:00] Sennosides [Senna Laxative] 8.6 mg PO ONCE 08/16/19 [History Confirmed 08/16/19 Last Taken 08/11/19 08:00] Theraworks 2 applic TOPICAL PRN PRN 08/16/19 [History Confirmed 08/16/19 Last Taken 08/15/19 20:00] Vit C/Vit E AC/Lut/Copper/Zinc [Preservision Lutein Softgel] 1 cap PO BID 08/16/19 [History Confirmed 08/16/19 Last Taken 08/16/19 08:00] Docusate Sodium [Colace] 100 mg PO BID #60 cap 08/20/19 [Rx Last Taken Unknown] Lactulose [Cephulac] 10 gm PO DAILYP PRN oral.sabrina 08/20/19 [Rx Last Taken Unknown] Lidocaine [Lidoderm] 1 patch TOPICAL DAILY@1000 #20 patch 08/20/19 [Rx Last Taken Unknown] Magnesium Citrate [Citroma] 125 ml PO DAILYP PRN oral.sabrina 08/20/19 [Rx Last Taken Unknown] Sennosides [Senokot] 2 tab PO HSP PRN tablet 08/20/19 [Rx Last Taken Unknown] fentaNYL [Duragesic] 25 mcg TOPICAL Q72H #5 patch 08/20/19 [Rx Last Taken Unknown] oxyCODONE HCL [Roxicodone] 5 mg PO Q4HP PRN #30 tab 08/20/19 [Rx Last Taken Unknown] Medical - DS: Hosp Hospital Course: Discharge diagnosis * Acute T7 compression fracture-status post T7 vertebroplasty by Dr. Ruano 08/19. Improved pain control postprocedure. Discharging to SNF with continued with continued posthospitalization PT OT * Acute on chronic diastolic CHF: Well compensated. follows with Dr. Orosco, continue Lasix/beta-nahomi. Echocardiogram moderate pulmonary hypertension with preserved EF at 65%. * Hypoxic respiratory failure: On baseline 2 L oxygen as needed. May use as needed during activity * Intractable back pain: 2/2 above. Continue fentanyl/synthetic opioid/Tylenol and lidocaine patch. Will follow-up with pain clinic as outpatient. * COPD: On 2 L oxygen. Patient does not use home oxygen. Continue bronchodilators * Obesity * anemia, chronic * Afib: rate controlled onToprol, anticoagulation on Eliquis * CKD III: Brief hospital course Ms. Leavitt is a 89 year old F Who presents the ED again for back pain radiating to her chest. She been in and out of the ER several times the past week for complaints of abdominal pain back pain chest pain. She said CT of the chest and as well as abdominal films ultrasound and lumbar MRI images show degenerative joint and no other acute pathology patient was treated for constipation. She presents today because she just has the severe back pain which she rated 10 out of 10. She is also more short of breath which has been progressing over the past few weeks. But is made worse by the acute pain. She is diagnosed with H fibrillation CHF a year ago at [place]. In the ED here the MRI of the thoracic spine showed pleural effusions and x-ray was done which showed edema. Per the daughter she has had more edema in her thighs lately. She has COPD and refuses to be evaluated for home oxygen though she has a family members occasionally short of breath. Oxygen at home has been as low as 86 and typically is 88-91. In the ED they recorded oxygen saturation of the lower 80s. The thoracic MRI showed acute T7 fracture. Case was also discussed with Dr. Ruano for potential vertebroplasty eventually. Troponin was unremarkable. She reports that she first noticed the pain in the back when she was doing dishes a week ago, he was bending over at that time. She had occasional nausea from the pain and sweats. She has some pain in the chest wall under the left breast 08/17 Seem to sleep well last night. But complains of pain in her back this morning and appears uncomfortable. She has shortness of breath. She says about the same as yesterday. Good urine output overnight. Chest x-ray with improved. Denies cough. 08/18-patient seen in room. No overnight events. Resting comfortably. Persistent back pain however much improved on continued fentanyl patch/Robaxin/Tylenol and lidocaine patch. Pain clinic Dr. Ruano aware of patient and will consult if patient does not improve. Await family meeting with Dr. Ruano. Stable labs and vitals 08/19-patient underwent vertebroplasty T7 by Dr. Ruano. Currently on aggressive pain intervention including fentanyl/oxycodone/Tylenol/tramadol/lidocaine patch. Pain much improved. Able to ambulate. Mild radiation pain at the T7 dermatome. Family at bedside. Anticipate discharge in 24 hours if continues to improve clinically. Will follow-up with pain clinic as outpatient. 08/20-patient doing well. Family at bedside. Was able to ambulate. Sitting on chair. Tolerating breakfast. Pain at rest 4 out of 10. No overnight events or concerns per staff. Discharging to SNF with continued pain management as above. We will follow-up with Dr. Ruano outpatient pain clinic. Discharge diagnosis: . - Time Spent with Patient Total time spent providing and/or coordinating discharge services: Greater than 30 minutes Medical - DS: Exam - Constitutional Vitals: Vital Signs Temp Pulse Resp BP BP Pulse Ox 08/20/19 08:15 95 08/20/19 08:00 97.9 F 20 136/72 98 08/20/19 04:51 16 135/88 95 08/20/19 00:41 111/61 08/20/19 00:36 97.9 F 111/61 100 08/19/19 20:13 122/76 08/19/19 20:00 97.9 F 10/10/19 19:16 16 08/19/19 18:41 16 110/74 96 08/19/19 17:00 120/102 08/19/19 15:57 98.0 F 105 H 132/98 91 08/19/19 15:01 100/56 08/19/19 14:02 99/55 08/19/19 13:01 142/126 08/19/19 12:31 126/106 08/19/19 12:30 132/87 08/19/19 12:00 98.0 F 17 126/76 97 08/19/19 11:02 16 113/70 100 08/19/19 10:33 18 104/65 98 08/19/19 10:18 17 112/65 100 Intake and Output 08/19/19 08/20/19 08/20/19 21:59 05:59 13:59 Intake Total 720 360 Output Total 375 300 Balance 345 60 Intake: Oral 720 360 Output: Void Amount 375 300 Other: Stool Size Small Smear Stool Color Brown Brown Stool Consistency Loose Soft Formed # Bowel Movements 1 1 Weight 180 lb Medical - DS: A/P - Patient/Caregiver Discharge Instructions Activity: as per physical therapy, increase activity as tolerated Diet: Regular Diet Additional Instructions: Follow-up PCP in 5 days Follow-up pain clinic as advised by Dr. Ruano Continue anticoagulation on Eliquis I recommend SNF physician to checkCBC BMP UA as a posthospital follow-up in 1 week. Oxygen as needed during activity Continue aggressive bowel regimen to prevent constipation from opioid use Continue fall precautions daily weights measurements and take additional 40 mg Lasix for 3 days if weight gain over 4 pounds over baseline or worsening shortness of breath and call primary care physician if inadequate response to Lasix Continue aggressive PT OT evaluation and treatment at [facility]. ST eval and treatment if indicated All meals on chair sitting upright at 90 degrees to prevent aspiration Return to ER if worsening fever chills shortness of breath, diarrhea, bleeding Review risk and side effect profile of medications including opioids. Side effect may include mild to severe reaction including dizziness, shallow breathing, nausea and in extreme cases even which can be prevented by close follow-up and monitoring for side effects at [facility]. Continue diet and activity as advised Discussed importance of medication adherence Please review medication list with patient prior to discharge Please schedule follow-up with PCP/Providers prior to discharge and provide printouts Portions of this chart may have been created with [employer] voice recognition software. Occasional wrong-word or ?sound-like? substitutions may have occurred due to the inherent limitations of voice recognition software. Please read the chart carefully and recognize, using context, where the substitutions have occurred. CC- PCP Prescriptions: Docusate Sodium [Colace] 100 mg PO BID #60 cap Prescription Printed fentaNYL [Duragesic] 25 mcg TOPICAL Q72H #5 patch Prescription Printed Lidocaine [Lidoderm] 1 patch TOPICAL DAILY@1000 #20 patch Prescription Printed oxyCODONE HCL [Roxicodone] 5 mg PO Q4HP PRN #30 tab PRN Reason: Pain Level 3-6 Prescription Printed Acetaminophen [Tylenol Extra Strength] 500 mg PO Q4H #60 tablet Other Amb Orders: OT Discharge Order Facility: [facility], Location: [facility] at Discharge - General Facility: [facility], Location: [facility] - Follow up Plan Follow up with: Mikki Huang MD [Primary Care Provider] - Maurice Ruano MD [Physician] - 08/30/19 11:00 am Disposition: Xfer SNF Prognosis: Fair Rehab Potential: Fair I certify that the patient requires SNF services: Yes Overall status at discharge: patient is progressing back to baseline Medical - DS: Qual - VTE Deep Vein Thrombosis/Pulmonary Embolism Present on Admission: No
== END 2019-08-20 10:22 | DRG 515 ==
LOC: ED 10:15 → ICU 16:24
PROVIDERS: ADMIT Internal Medicine; ATTEND Internal Medicine

== ENCOUNTER 2019-09-12 10:02 | Inpatient (IN) ==
[2019-09-12] MEDS ORDERED: ONDANSETRON 4 MG/2 ML VIAL IV ONE (10:56)
[2019-09-12] MEDS: HYDROmorphone 2 MG/ML VIAL IV PRN ×4 (11:26→16:54)
--- NOTE | 2019-09-12 11:56 | Cat Scan Report ---
CLINICAL INFORMATION: History of previous thoracic kyphoplasty or vertebroplasty. Acute back pain. TECHNIQUE: Axial images through the thoracic spine. Sagittal and coronal reformatted images COMPARISON: Previous MRI scan dated 08/16/2019 FINDINGS: Previous T7 kyphoplasty or vertebroplasty. There is methylmethacrylate within the T7 vertebral body, predominantly right-sided. There is methylmethacrylate within the right T7 pedicle. There is epidural methyl methacrylate which may be within epidural veins or free cement in the epidural space. Impression deformity of the T6 vertebral body. This is new since 08/16/2019. There is wedging with approximately 40% loss of height anteriorly. No destructive lesion. Appearance is consistent with benign compression fracture. There is no significant paraspinal mass. There is no retropulsion. No detectable acute disc herniation. Thoracic spine is otherwise negative. Other thoracic vertebral body heights are within normal limits. There are no lytic lesions. No evidence for metastatic disease. There is exaggerated thoracic kyphosis. No paraspinal soft tissue mass. There is severe degenerative disc disease at L2-3, L3-4, L4-5. Imaged lumbar vertebral bodies otherwise negative without compression fracture. IMPRESSION: 1. Status post vertebroplasty or kyphoplasty at T7. Mild epidural methylmethacrylate as above 2. Interval compression deformity of the T6 vertebral body. Appearance is consistent with benign compression fracture without retropulsion Interpreted and Authenticated by: Andre Cesar 09/12/19
[2019-09-12 13:37] LABS: Appearance,Urine CLEAR; Bacteria,Urine 0 /hpf (0); Bilirubin,Urine NEG (NEG); Color,Urine YELLOW; Culture Indicated,Urine YES; Glucose,Urine (UA) NEGATIVE (NEG); Ketones,Urine 20 mg/dL (NEG); Leukocyte Esterase,Urine 25 /uL (NEG); Nitrate,Urine NEG (NEG); Protein,Urine 30 mg/dL (NEG); Specific Gravity,Urine 1.025 (1.000-1.035); Urine Amorphous Crystals FEW /hpf (0); Urine Blood NEG mg/dL (<0.03); Urine Hyaline Cast 2 /lpf (0-2); Urine RBC 1 /hpf (0-1); Urine Squamous Epithelial Cell 0 /hpf (0-4); Urine Transitional Epi Cells < 1 /hpf (0-2); Urine WBC 17 /hpf (0-4); Urobilinogen,Urine NEG (NEG)
--- NOTE | 2019-09-12 14:22 | Emergency Department Note ---
General Adult HPI - General Chief complaint: Back Pain/Injury Stated complaint: poss UTI, possible back fx Time Seen by Provider: 09/12/19 10:17 Source: patient Mode of arrival: wheelchair Limitations: no limitations - History of Present Illness HPI Narrative: 89-year-old female presents with family members. Is here due to to frequent urination, generalized weakness and unable to care for herself, and unmanageable back pain. She had vertebroplasty 3 weeks ago. Seem to be getting better and is now worse again. Family denies any fall, trauma, or injury. They do state the doctor told him that it was just a matter time before she would have more fractures because her arthritis was so bad. They believe that maybe she has more fractures now or urinary tract infection or something going on if she is getting worse now instead of better. They states she gets up at least 14 times a night to go the bathroom and only dribbles a few drops. Also no matter what they do they can get her pain under control. Family reports they have switched around her pain medication constantly over the last 3 weeks trying to get on top of her pain but cannot. Something will work for a few days and then it seems to not work. states she went to a rehab facility after surgery but was only able to stay a little over a week because insurance would not allow her to stay longer. They have been trying to manage with home health at home but states they absolutely cannot take care of her anymore and do not know what to do. They also feel like something is wrong. No fever or chills. No nausea, vomiting, or diarrhea. No incontinence of bowel or bladder. No numbness or tingling. - Related Data Home Medications Medication Instructions Recorded Confirmed apixaban 5 mg tablet 5 mg PO BID 02/09/19 09/12/19 metoprolol succinate 50 mg 50 mg PO BID 02/09/19 09/12/19 tablet,extended release 24 hr simvastatin 10 mg tablet 5 mg PO QHS 02/09/19 09/12/19 Calcium Carbonate/Vitamin D3 1 tab PO DAILY 08/16/19 09/12/19 [Calcium 600 + Vit D Tablet] Fluticasone/Vilanterol [Breo 1 inh INH QAM 08/16/19 09/12/19 Ellipta 100-25 Mcg INH] Furosemide [Lasix] 40 mg PO DAILY 08/16/19 09/12/19 Potassium Chloride [Kdur] 20 meq PO DAILY 08/16/19 09/12/19 Restful Legs 1 tab SL QHS PRN 08/16/19 09/12/19 Theraworks 2 applic TOPICAL PRN PRN 08/16/19 09/12/19 Vit C/Vit E AC/Lut/Copper/Zinc 1 cap PO BID 08/16/19 09/12/19 [Preservision Lutein Softgel] LORazepam [Ativan] 0.25 mg PO HSP PRN 09/12/19 09/12/19 Methocarbamol [Robaxin-750] 750 mg PO Q8HP PRN 09/12/19 09/12/19 Previous Rx's Medication Instructions Recorded Ondansetron [Zofran ODT] 4 mg SL Q4-6HP PRN #7 tab 08/12/19 traMADol [Ultram] 50 mg PO Q6HP PRN #10 tab 08/12/19 Acetaminophen [Tylenol Extra 500 mg PO Q4H #60 tab 08/20/19 Strength] Lidocaine [Lidoderm] 1 patch TOPICAL DAILY@1000 #20 08/20/19 patch Magnesium Citrate [Citroma] 125 ml PO DAILYP PRN oral.sabrina 08/20/19 Sennosides [Senokot] 2 tab PO HSP PRN tab 08/20/19 fentaNYL [Duragesic] 25 mcg TOPICAL Q72H #5 patch 08/20/19 Allergies Allergy/AdvReac Type Severity Reaction Status Date / Time No Known Drug Allergies Allergy Verified 09/12/19 10:05 Review of Systems All systems ED: reviewed and negative except as stated. Past Medical History - Past Medical History [facility] Narrative: Medical History (Last Reviewed 07/07/19 @ 11:08 by GEMMA Richardson) History of tobacco use (Chronic) Age-related macular degeneration (Chronic) Persistent atrial fibrillation (Chronic) Hemorrhoids (Chronic) Adenomatous polyp (Chronic) Osteoporosis (Chronic ~12/31/18) Actinic keratosis (Chronic ~12/31/18) COPD exacerbation (Chronic) COPD (chronic obstructive pulmonary disease) (Chronic) Macular degeneration (Chronic) Head injury (Chronic ~1948) Premature ventricular contractions (Chronic) Osteoarthritis (Chronic) Mild mitral regurgitation (Chronic) Hyperlipidemia (Chronic) Paroxysmal atrial fibrillation (Chronic) Shortness of breath (Chronic) Chest pain (Chronic) Atrial fibrillation (Chronic) CHF (congestive heart failure) (Acute) Heart disease (Acute) Hypertension (Acute) Past Surgical History (Last Reviewed 07/07/19 @ 11:08 by GEMMA Richardson) History of appendectomy (Chronic ~1947) History of back surgery (Chronic) History of bladder surgery (Chronic ~2001) History of cardiac cath (Chronic) History of colonoscopy (Chronic) History of dilatation and curettage (Chronic ~1977) History of hysterectomy (Chronic ~2000) History of left heart catheterization (Chronic) History of repair of rotator cuff (Chronic ~2004) History of surgery (Chronic ~1993) History of surgery (Chronic ~1967) History of tonsillectomy and adenoidectomy (Chronic ~1948) History of tonsillectomy (Inactive ~1948) Medical history: Reports: arthritis, atrial fibrillation (Chronic), COPD, hyperlipidemia, hypertension, osteoporosis Psychiatric history: Reports: no psych history METAL RECLAMATION KETTLE TENDER history: Reports: non-contributory Surgical history ED: Reports: appendectomy, hysterectomy - Social History smoking status: Former smoker Alcohol use: Reports: None Drug use: Reports: none Physical Exam Limitations: no limitations General appearance: alert Head: atraumatic, normocephalic, normal inspection Eye: Present: normal appearance. Absent: conjunctival injection ENT: Present: mucous membranes moist Chest: Present: symmetric chest wall rise Respiratory: Present: normal lung sounds bilaterally. Absent: respiratory distress, rales/crackles, accessory muscle use Cardiovascular: Present: regular rate, normal heart sounds Extremities: Present: normal inspection Back: Present: vertebral tenderness (Midline T-spine tenderness at T5-T8 area. No redness, warmth or drainage) Neurological: Present: alert, normal gait. Absent: motor sensory deficit Psychiatric: Present: normal affect, normal mood Skin: Present: warm, dry, intact Course Course Narrative: At 16[address] I did speak with Dr. Ruano who is on-call for interventional pain consultants. He does note this patient. He will come in and consult on her in the morning. At 1640 I did speak with hospitalist, Dr. Wilson who agrees to accept this patient. Vital Signs Temperature 98.0 F 09/12/19 10:03 Pulse Rate 84 09/12/19 10:03 Respiratory Rate 18 09/12/19 10:03 Blood Pressure 131/69 09/12/19 10:03 Pulse Oximetry (%) 95 09/12/19 10:03 Temperature 98.0 F 09/12/19 10:03 Pulse Rate 89 09/12/19 15:10 Respiratory Rate 18 09/12/19 10:03 Blood Pressure 91/63 09/12/19 15:10 Pulse Oximetry (%) 95 09/12/19 15:10 Medical Decision Making - Lab Data Lab results reviewed: Yes I reviewed the patient's lab results. Result diagrams: 09/12/19 14:54 09/12/19 14:54 Lab Results 09/12/19 09/12/19 09/12/19 Range/Units 11:37 12:46 14:54 WBC 4.5 (4.5-11.0) K/mcL RBC 3.83 L (4.00-5.20) M/mcL Hgb 10.9 L (12.0-15.0) g/dL Hct 33.3 L (36.0-48.0) % MCV 86.9 (80.0-100.0) fL MCH 28.3 (26.0-34.0) pg MCHC 32.6 (31.0-36.0) g/dL RDW 15.9 H (11.5-14.5) % Plt Count 231 (140-440) K/mcL MPV 8.2 (7.4-10.4) fL Gran % 63.5 (38.0-78.0) % Lymph % (Auto) 25.6 (15.5-49.0) % Haakon % (Auto) 9.3 (1.0-12.0) % Eos % (Auto) 1.0 (0.0-7.0) % Baso % (Auto) 0.6 (0.0-2.0) % Gran # 2.9 (1.8-8.0) K/mcL Lymph # (Auto) 1.2 L (1.5-4.8) K/mcL [place] # (Auto) 0.4 (0.1-0.9) K/mcL Eos # (Auto) 0 (0.0-0.7) K/mcL Baso # (Auto) 0 (0.0-0.3) K/mcL Sodium (133-145) mmol/L Potassium (3.3-5.1) mmol/L Chloride (96-108) mmol/L Carbon Dioxide (22-30) mmol/L Anion Gap (8-16) BUN (8-23) mg/dl Creatinine (0.6-1.1) mg/dl GFR Calculation Glucose (70-105) mg/dL Calcium (8.6-10.4) mg/dl Total Bilirubin (0.0-1.0) mg/dL AST (0-37) U/l ALT (0-40) U/l Alkaline Phosphatase (39-117) U/L Total Protein (5.9-8.4) gm/dL Albumin (3.2-5.2) gm/dL Globulin (2.2-3.7) gm/dL Albumin/Globulin Ratio (1.0-2.3) Urine Color TNP Yellow Urine Appearance TNP Clear Urine pH TNP 7.0 Ur Specific [place] TNP 1.025 Urine Protein TNP 30 A Urine Glucose (UA) TNP Negative Urine Ketones TNP 20 A Urine Occult Blood TNP Neg Urine Nitrate TNP Neg Urine Bilirubin TNP Neg Urine Urobilinogen TNP Neg Ur Leukocyte Esterase TNP 25 A Urine RBC 1 (0-1) /hpf Urine WBC 17 H (0-4) /hpf Ur Squamous Epith Cells 0 (0-4) /hpf Ur Transition Epith Cell < 1 (0-2) /hpf Amorphous Crystals Few A (0) /hpf Urine Bacteria 0 (0) /hpf Hyaline Casts 2 (0-2) /lpf Ur Culture Indicated? Yes 09/12/19 Range/Units 14:54 WBC (4.5-11.0) K/mcL RBC (4.00-5.20) M/mcL Hgb (12.0-15.0) g/dL Hct (36.0-48.0) % MCV (80.0-100.0) fL MCH (26.0-34.0) pg MCHC (31.0-36.0) g/dL RDW (11.5-14.5) % Plt Count (140-440) K/mcL MPV (7.4-10.4) fL Gran % (38.0-78.0) % Lymph % (Auto) (15.5-49.0) % [place] % (Auto) (1.0-12.0) % Eos % (Auto) (0.0-7.0) % Baso % (Auto) (0.0-2.0) % Gran # (1.8-8.0) K/mcL Lymph # (Auto) (1.5-4.8) K/mcL [place] # (Auto) (0.1-0.9) K/mcL Eos # (Auto) (0.0-0.7) K/mcL Baso # (Auto) (0.0-0.3) K/mcL Sodium 137 (133-145) mmol/L Potassium 4.2 (3.3-5.1) mmol/L Chloride 99 (96-108) mmol/L Carbon Dioxide 27 (22-30) mmol/L Anion Gap 11.0 (8-16) BUN 22 (8-23) mg/dl Creatinine 1.1 (0.6-1.1) mg/dl GFR Calculation 45 Glucose 110 H (70-105) mg/dL Calcium 9.0 (8.6-10.4) mg/dl Total Bilirubin 0.3 (0.0-1.0) mg/dL AST 19 (0-37) U/l ALT 12 (0-40) U/l Alkaline Phosphatase 96 (39-117) U/L Total Protein 6.6 (5.9-8.4) gm/dL Albumin 3.6 (3.2-5.2) gm/dL Globulin 3.0 (2.2-3.7) gm/dL Albumin/Globulin Ratio 1.2 (1.0-2.3) Urine Color Urine Appearance Urine pH Ur Specific [place] Urine Protein Urine Glucose (UA) Urine Ketones Urine Occult Blood Urine Nitrate Urine Bilirubin Urine Urobilinogen Ur Leukocyte Esterase Urine RBC (0-1) /hpf Urine WBC (0-4) /hpf Ur Squamous Epith Cells (0-4) /hpf Ur Transition Epith Cell (0-2) /hpf Amorphous Crystals (0) /hpf Urine Bacteria (0) /hpf Hyaline Casts (0-2) /lpf Ur Culture Indicated? Disposition Pt seen by JEWELER APPRENTICE/PA only: Yes Clinical Impression: Intractable back pain, UTI (urinary tract infection) Disposition: Xfer As Inpt ([facility]) Condition: Fair Referrals: Mikki Huang MD [Primary Care Provider] - Maurice Ruano MD [Physician] - Time of Disposition: 16:43
[2019-09-12] MEDS ORDERED: CIPROFLOXACIN 500 MG TABLET PO ONE (14:23)
[2019-09-12 15:35] LABS: Basophils # (Auto) 0 K/mcL (0.0-0.3); Basophils % (Auto) 0.6 % (0.0-2.0); Eosinophils # (Auto) 0 K/mcL (0.0-0.7); Granulocytes % (Auto) 63.5 % (38.0-78.0); Hematocrit 33.3 % (36.0-48.0); Hemoglobin 10.9 g/dL (12.0-15.0); Lymphocytes # (Auto) 1.2 K/mcL (1.5-4.8); Lymphocytes % (Auto) 25.6 % (15.5-49.0); Mean Cell Volume 86.9 fL (80.0-100.0); Mean Corpuscular HGB Conc 32.6 g/dL (31.0-36.0); Mean Platelet Volume 8.2 fL (7.4-10.4); Monocytes # (Auto) 0.4 K/mcL (0.1-0.9); Monocytes % (Auto) 9.3 % (1.0-12.0); Platelet Count 231 K/mcL (140-440); RBC 3.83 M/mcL (4.00-5.20); Red Cell Distribution Width 15.9 % (11.5-14.5); WBC 4.5 K/mcL (4.5-11.0)
[2019-09-12 15:56] LABS: ALT/SGPT 12 U/l (0-40); AST/SGOT 19 U/l (0-37); Albumin 3.6 gm/dL (3.2-5.2); Albumin/Globulin Ratio 1.2 (1.0-2.3); Alkaline Phosphatase 96 U/L (39-117); Bilirubin,Total 0.3 mg/dL (0.0-1.0); Blood Urea Nitrogen 22 mg/dl (8-23); Carbon Dioxide 27 mmol/L (22-30); Chloride 99 mmol/L (96-108); Glomerular Filtration Rate 45; Glucose 110 mg/dL (70-105)
--- NOTE | 2019-09-12 17:01 | Internal Med History&Physical ---
Medical - H&P: [facility] Patient information: Note initiated : 09/12/19 at 4:58 pm Service Date, if different from initiated Date: [] Patient: Lana Leavitt 89 y/o F admitted on for poss UTI, possible back fx. Chief Complaint: [] History of present illness: Ms. Leavitt is a 89 year old F Since the ED with increased urinary frequency generalized weakness and inability to care for self and increased low back pain. She had vertebroplasty 3 weeks ago for T7 compression fracture and pain subsequently improved but then worsened again. No recent falls or trauma or injury. Family concerned with urinary tract infection or more fractures. Family unable to take care of patient at home. She was at a rehab facility recently but was only there for a week because of insurance issues. CT thoracic spine with T6 compression fracture not present on previous imaging in early August. She has some chills but no fevers. She alternates with constipation diarrhea. No shortness of breath or coughing. Case and CT findings were discussed with Dr. Ruano. 1 L of oxygen at night. She did not tolerate the TLSO brace. Her is unable to care for her at home. Review of Systems: Positives as above. Denies headache/fever/nausea/vomiting/chest or abdominal pain/cough/dyspnea. remaining 10 point review of system reviewed negative Medical - H&P: [facility] Medical history: Medical History (Last Reviewed 07/07/19 @ 11:08 by GEMMA Richardson) History of tobacco use (Chronic) Age-related macular degeneration (Chronic) Persistent atrial fibrillation (Chronic) Hemorrhoids (Chronic) Adenomatous polyp (Chronic) Osteoporosis (Chronic ~12/31/18) Actinic keratosis (Chronic ~12/31/18) COPD exacerbation (Chronic) COPD (chronic obstructive pulmonary disease) (Chronic) Macular degeneration (Chronic) Head injury (Chronic ~1947) Premature ventricular contractions (Chronic) Osteoarthritis (Chronic) Mild mitral regurgitation (Chronic) Hyperlipidemia (Chronic) Paroxysmal atrial fibrillation (Chronic) Shortness of breath (Chronic) Chest pain (Chronic) Atrial fibrillation (Chronic) CHF (congestive heart failure) (Acute) Heart disease (Acute) Hypertension (Acute) Past Surgical History (Last Reviewed 07/07/19 @ 11:08 by GEMMA Richardson) History of appendectomy (Chronic ~1947) History of back surgery (Chronic) History of bladder surgery (Chronic ~2001) History of cardiac cath (Chronic) History of colonoscopy (Chronic) History of dilatation and curettage (Chronic ~1977) History of hysterectomy (Chronic ~2000) History of left heart catheterization (Chronic) History of repair of rotator cuff (Chronic ~2004) History of surgery (Chronic ~1993) History of surgery (Chronic ~1967) History of tonsillectomy and adenoidectomy (Chronic ~1948) History of tonsillectomy (Inactive ~194) Family History (Last Reviewed 07/07/19 @ 11:08 by GEMMA Richardson) Mother No problems noted. Other Family history of Alzheimer's disease Family history of CHF (congestive heart failure) Family history of chronic obstructive lung disease Family history of heart disease Family history of multiple sclerosis Social History (Last Updated 07/07/19 @ 11:11 by GEMMA Richardson) Patient quit smoking in 2018 drinks alcohol rarely has been using walker lately Lives at home with her Medical - H&P: Meds Home Medications Medication Instructions Recorded Confirmed Type apixaban 5 mg tablet 5 mg PO BID 02/09/19 09/12/19 History metoprolol succinate 50 mg 50 mg PO BID 02/09/19 09/12/19 History tablet,extended release 24 hr simvastatin 10 mg tablet 5 mg PO QHS 02/09/19 09/12/19 History Ondansetron [Zofran ODT] 4 mg SL Q4-6HP PRN #7 tab 08/12/19 09/12/19 Rx traMADol [Ultram] 50 mg PO Q6HP PRN #10 tab 08/12/19 09/12/19 Rx Calcium Carbonate/Vitamin D3 1 tab PO DAILY 08/16/19 09/12/19 History [Calcium 600 + Vit D Tablet] Fluticasone/Vilanterol [Breo 1 inh INH QAM 08/16/19 09/12/19 History Ellipta 100-25 Mcg INH] Furosemide [Lasix] 40 mg PO DAILY 08/16/19 09/12/19 History Potassium Chloride [Kdur] 20 meq PO DAILY 08/16/19 09/12/19 History Restful Legs 1 tab SL QHS PRN 08/16/19 09/12/19 History Theraworks 2 applic TOPICAL PRN PRN 08/16/19 09/12/19 History Vit C/Vit E AC/Lut/Copper/Zinc 1 cap PO BID 08/16/19 09/12/19 History [Preservision Lutein Softgel] Acetaminophen [Tylenol Extra 500 mg PO Q4H #60 tab 08/20/19 09/12/19 Rx Strength] Lidocaine [Lidoderm] 1 patch TOPICAL DAILY@1000 #20 08/20/19 09/12/19 Rx patch Magnesium Citrate [Citroma] 125 ml PO DAILYP PRN oral.sabrina 08/20/19 09/12/19 Rx Sennosides [Senokot] 2 tab PO HSP PRN tab 08/20/19 09/12/19 Rx fentaNYL [Duragesic] 25 mcg TOPICAL Q72H #5 patch 08/20/19 09/12/19 Rx LORazepam [Ativan] 0.25 mg PO HSP PRN 09/12/19 09/12/19 History Methocarbamol [Robaxin-750] 750 mg PO Q8HP PRN 09/12/19 09/12/19 History Allergies Allergy/AdvReac Type Severity Reaction Status Date / Time No Known Drug Allergies Allergy Verified 09/12/19 10:05 Medical - H&P: Exam - Constitutional Vitals: Temp Pulse Resp BP Pulse Ox 98.0 F 89 18 91/63 95 09/12/19 10:03 09/12/19 15:10 09/12/19 10:03 09/12/19 15:10 09/12/19 15:10 Exam: General: Alert, Awake, No acute Distress, obese Eyes/N/T: EOMI, PERRL, Head/Neck: neck supple, normocephalic atraumatic, CV: irreg irreg, No murmurs, normal s1/s2 Pulm: mild exp wheeze, no rales Abd: soft, nontender, +BS x4 Ext: no clubbing/cyanosis, mild b/l LE edema Neuro: Alert, no focal deficits, moves all extremities, CN 2-12 grossly intact, symmetrical strength b/l upper/lower, sensations intact b/l upper/lower Skin: warm/dry Medical - H&P: Reslt - Labs CBC & Chem 7: 09/12/19 14:54 09/12/19 14:54 Labs: Short CBC 09/12/19 Range/Units 14:54 WBC 4.5 (4.5-11.0) K/mcL Hgb 10.9 L (12.0-15.0) g/dL Hct 33.3 L (36.0-48.0) % Plt Count 231 (140-440) K/mcL BMP 09/12/19 14:54 Sodium 137 Potassium 4.2 Chloride 99 Carbon Dioxide 27 BUN 22 Creatinine 1.1 Glucose 110 H Calcium 9.0 Liver Function 09/12/19 Range/Units 14:54 Total Bilirubin 0.3 (0.0-1.0) mg/dL AST 19 (0-37) U/l ALT 12 (0-40) U/l Alkaline Phosphatase 96 (39-117) U/L Albumin 3.6 (3.2-5.2) gm/dL Urine 09/12/19 09/12/19 Range/Units 11:37 12:46 Urine Color TNP Yellow Urine Appearance TNP Clear Urine pH TNP 7.0 Ur Specific [place] TNP 1.025 Urine Protein TNP 30 A Urine Glucose (UA) TNP Negative - Impressions CT thoracic spine with new T6 compression fracture Medical - H&P: A/P - Narrative A/P Narrative: A: *Acute on chronic LBP, Intractable: Recent T7 vertebroplasty -CT with new compression fracture T6 *UTI: *Generalized weakness/deconditioning/debility: *COPD (requires 1L O2@night): *h/o diastolic CHF: -follows with Dr. Orosco, is on toprol and lasix -echo with good EF but diastolic dysfxn, biatrial dilation, mod MR, Pulm HTN *Afib: on Eliquis and Toprol *Obesity: *CKD III: *anemia, chronic: *Anxiety/Depression: P: -Dr. Ruano consulted -lidoderm patch, Fentanyl patch (made need increased dose), robaxin prn, oxycodone for breakthrough, Tylenol prn -per daughter, narcotics do not seem to typically take effect with her, usually requires higher doses -Abx, pending UC -prn O2, prn nebs, home IH's -bont BB/lasix -bowel regimen -pt/ot -CM for placement -ppx: home eliquis
[2019-09-12] MEDS ORDERED: THERAWORKS TOPICAL PRN (19:31)
[2019-09-12] MEDS ORDERED: POLYETHYLENE GLYCOL 3350 17 GM PACKET PO PRN (19:31)
[2019-09-12] MEDS ORDERED: PROMETHAZINE 25 MG TABLET PO PRN (19:31)
[2019-09-12] MEDS ORDERED: cefTRIAXone 1 GM in DEXTROSE 5% IN WATER 50 ML IV SCH (19:31)
[2019-09-12] MEDS ORDERED: SENNOSIDES 1 TABLET PO PRN (19:31)
[2019-09-12] MEDS ORDERED: MAGNESIUM CITRATE 300 ML ORAL.SOL PO PRN (19:31)
[2019-09-12] MEDS ORDERED: POTASSIUM CHLORIDE 40 MEQ in DEXTROSE 5% IN WATER 500 ML IV PRN (19:31)
[2019-09-12] MEDS ORDERED: fentaNYL 25 MCG PATCH TD SCH (19:31)
[2019-09-12] MEDS ORDERED: POTASSIUM CHLORIDE 20 MEQ TABLET PO PRN ×2 (19:31)
[2019-09-12] MEDS ORDERED: traMADol 50 MG TABLET PO PRN (19:31)
[2019-09-12] MEDS ORDERED: MAGNESIUM SULFATE 2 GM/50 ML BAG IV PRN (19:31)
[2019-09-12] MEDS: IPRATROPIUM/ALBUTEROL 3 ML AMPUL.NEB NEB PRN (21:20)
[2019-09-12] MEDS: METHOCARBAMOL 1,000 MG/10 ML VIAL IV PRN (21:34)
[2019-09-12] MEDS: APIXABAN 5 MG TABLET PO SCH (21:34)
[2019-09-12] MEDS: METOPROLOL SUCCINATE 50 MG TAB.XL.24H PO SCH (21:34)
[2019-09-12] MEDS: cefTRIAXone 1 GM VIAL IV SCH (21:36)
[2019-09-12] MEDS: SIMVASTATIN 10 MG TABLET PO SCH (21:42)
[2019-09-12] MEDS: DOCUSATE SODIUM 100 MG CAPSULE PO SCH (21:42)
[2019-09-12] MEDS: VIT A,C & E/LUTEIN/MINERALS TABLET PO SCH (21:42)
[2019-09-12] MEDS: 0.9 % SODIUM CHLORIDE 10 ML SYRINGE IV SCH (21:43)
[2019-09-12] MEDS: oxyCODONE/APAP 5/325MG TABLET PO PRN (22:39)
[2019-09-12] MEDS: LORazepam 0.5 MG TABLET PO PRN (22:41)
[2019-09-13] MEDS: ACETAMINOPHEN 325 MG TABLET PO PRN ×2 (00:53→09:36)
[2019-09-13] MEDS: oxyCODONE/APAP 5/325MG TABLET PO PRN ×4 (02:50→18:45)
[2019-09-13] MEDS: 0.9 % SODIUM CHLORIDE 10 ML SYRINGE IV SCH ×4 (03:55→20:42)
[2019-09-13] MEDS: METHOCARBAMOL 1,000 MG/10 ML VIAL IV PRN ×3 (03:55→16:01)
[2019-09-13 06:29] LABS: Basophils # (Auto) 0 K/mcL (0.0-0.3); Basophils % (Auto) 0.6 % (0.0-2.0); Eosinophils # (Auto) 0 K/mcL (0.0-0.7); Eosinophils % (Auto) 0.4 % (0.0-7.0); Granulocytes % (Auto) 64.9 % (38.0-78.0); Hematocrit 32.7 % (36.0-48.0); Hemoglobin 10.7 g/dL (12.0-15.0); Lymphocytes # (Auto) 1.2 K/mcL (1.5-4.8); Lymphocytes % (Auto) 23.7 % (15.5-49.0); Mean Cell Volume 87.8 fL (80.0-100.0); Mean Corpuscular HGB Conc 32.7 g/dL (31.0-36.0); Mean Platelet Volume 8.9 fL (7.4-10.4); Monocytes # (Auto) 0.5 K/mcL (0.1-0.9); Monocytes % (Auto) 10.4 % (1.0-12.0); Platelet Count 211 K/mcL (140-440); RBC 3.72 M/mcL (4.00-5.20); Red Cell Distribution Width 15.5 % (11.5-14.5); WBC 4.9 K/mcL (4.5-11.0)
[2019-09-13 06:51] LABS: ALT/SGPT 11 U/l (0-40); AST/SGOT 23 U/l (0-37); Albumin 3.3 gm/dL (3.2-5.2); Albumin/Globulin Ratio 1.1 (1.0-2.3); Alkaline Phosphatase 95 U/L (39-117); Bilirubin,Direct < 0.2 mg/dL (0.0-0.3); Bilirubin,Total 0.3 mg/dL (0.0-1.0); Blood Urea Nitrogen 20 mg/dl (8-23); Calcium 8.9 mg/dl (8.6-10.4); Carbon Dioxide 25 mmol/L (22-30); Chloride 93 mmol/L (96-108); Globulin 3.1 gm/dL (2.2-3.7); Glomerular Filtration Rate 45; Glucose 78 mg/dL (70-105); Lactate Dehydrogenase 294 U/L (94-250); Phosphorous 3.7 mg/dL (2.7-4.5); Triglycerides 72 mg/dl (<150); Uric Acid 6.8 mg/dL (2.5-8.0)
--- NOTE | 2019-09-13 07:22 | Internal Med Progress Note ---
Medical - PN: Subj Patient information: Note initiated : 09/13/19 at 7:20 am Service Date, if different from initiated Date: [] Patient: Lana Leavitt 89 y/o F admitted on 09/12/19 for poss UTI, possible back fx. Chief Complaint: [] Interval history: Ms. Leavitt is a 89 year old F Since the ED with increased urinary frequency generalized weakness and inability to care for self and increased low back pain. She had vertebroplasty 3 weeks ago for T7 compression fracture and pain subsequently improved but then worsened again. No recent falls or trauma or injury. Family concerned with urinary tract infection or more fractures. Family unable to take care of patient at home. She was at a rehab facility recently but was only there for a week because of insurance issues. CT thoracic spine with T6 compression fracture not present on previous imaging in early August. She has some chills but no fevers. She alternates with constipation diarrhea. No shortness of breath or coughing. Case and CT findings were discussed with Dr. Ruano. 1 L of oxygen at night. She did not tolerate the TLSO brace. Her is unable to care for her at home. 09/13 Was able to sleep last night. She still has continued back pain. Fentanyl patch restarted this morning, still having pain. Some nausea no vomiting. Increase fentanyl patch PRN IV Dilaudid as that seems to help the most acutely. Review of Systems: denies headache/fever/chills/nausea/vomiting/chest or abdominal pain/cough/dyspnea/diarrhea. Otherwise see above. - Constitutional Vitals: Vital Signs Temp Pulse Resp BP Pulse Ox 97.9 F 100 H 24 H 124/91 98 09/13/19 04:04 09/13/19 03:47 09/13/19 03:47 09/13/19 03:47 09/13/19 03:47 Period Temp Pulse Resp BP Sys/Ding Pulse Ox Last 24 Hr 97.9 F-98.0 F 61-100 16-24 91-131/63-93 85-99 Intake and Output 09/12/19 09/13/19 09/13/19 21:59 05:59 13:59 Intake Total 240 Output Total 350 Balance -110 Weight 75.115 kg Intake & Output: Intake & Output 09/12/19 09/13/19 09/13/19 21:59 05:59 13:59 Intake Total 240 Output Total 350 Balance -110 Weight 75.115 kg Intake: Oral 240 Output: Urine Catheter Amount 350 Other: Urine Appearance Cloudy Fem Cath Clear Urine Color Pale Fem Cath Pale Exam: General: Alert, Awake, No acute Distress, obese Eyes/N/T: EOMI, Head/Neck: neck supple, CV: irreg irreg, No murmurs, Pulm: no wheezing currently, no rales Abd: soft, nontender, +BS x4 Ext: no clubbing/cyanosis, mild b/l LE edema Neuro: Alert, no focal deficits, moves all extremities, Skin: warm/dry Medical - PN: Obj Da - Labs CBC & Chem 7: 09/13/19 04:10 09/13/19 04:10 Labs: Abnormal Lab Results 09/13/19 09/13/19 09/12/19 04:10 04:10 14:54 RBC 3.72 L Hgb 10.7 L Hct 32.7 L RDW 15.5 H Lymph # (Auto) 1.2 L Chloride 93 L Glucose 110 H Lactate Dehydrogenase 294 H Urine Protein Urine Ketones Ur Leukocyte Esterase Urine WBC Amorphous Crystals 09/12/19 09/12/19 14:54 12:46 RBC 3.83 L Hgb 10.9 L Hct 33.3 L RDW 15.9 H Lymph # (Auto) 1.2 L Chloride Glucose Lactate Dehydrogenase Urine Protein 30 A Urine Ketones 20 A Ur Leukocyte Esterase 25 A Urine WBC 17 H Amorphous Crystals Few A Meds: Medications Acetaminophen (Tylenol) 650 mg PO Q6HP PRN PRN Reason: PAIN/FEVER > 101 Last Admin: 09/13/19 00:53 Dose: 650 mg Documented by: Albuterol/Ipratropium (Duoneb) 3 ml NEB Q4HP PRN PRN Reason: Shortness Of Breath Last Admin: 09/12/19 21:20 Dose: 3 ml Documented by: Apixaban (Eliquis) 5 mg PO BID [facility] Last Admin: 09/12/19 21:34 Dose: 5 mg Documented by: Calcium/Vitamin D (Calcium W/Vit D3) 500 mg PO DAILY [facility] Ceftriaxone Sodium (Rocephin) 1 gm IV DAILY [facility] Last Admin: 09/12/19 21:36 Dose: 1 gm Documented by: Docusate Sodium (Colace) 100 mg PO BID [facility] Last Admin: 09/12/19 21:42 Dose: Not Given Documented by: Furosemide (Lasix) 40 mg PO DAILY [facility] Potassium Chloride 40 meq/ (Dextrose) 520 mls @ 130 mls/hr IV UD PRN PRN Reason: Potassium < 3 Magnesium Sulfate (Magnesium Sulfate) 2 gm in 50 mls @ 50 mls/hr IV UD PRN PRN Reason: Magnesium </= 1.6 Lidocaine (Lidoderm) 1 patch TOPICAL DAILY@1000 [facility] Lorazepam (Ativan) 0.25 mg PO HSP PRN PRN Reason: Insomnia Last Admin: 09/12/19 22:41 Dose: 0.25 mg Documented by: Magnesium Citrate (Citroma) 125 ml PO DAILYP PRN PRN Reason: Constipation Methocarbamol (Robaxin) 750 mg IV Q6HP PRN PRN Reason: Muscle Spasm Last Admin: 09/13/19 03:55 Dose: 750 mg Documented by: Metoprolol Succinate (Toprol Xl) 50 mg PO BID [facility] Last Admin: 09/12/19 21:34 Dose: 50 mg Documented by: Multivitamins/Minerals (Ocuvite) 1 tab PO BID [facility] Last Admin: 09/12/19 21:42 Dose: Not Given Documented by: Non-Formulary Medication (Fluticasone/Vilanterol [Breo Ellipta 100-25 Mcg Inh]) 1 inh INH QAM [facility] Non-Formulary Medication (Restful Legs) 1 tab SL QHS PRN PRN Reason: Muscle Spasticity Non-Formulary Medication (Theraworks) 2 applic topical PRN PRN PRN Reason: Pain Ondansetron HCl (Zofran) 4 mg IV Q4HP PRN PRN Reason: Nausea And Vomiting Oxycodone/Acetaminophen (Percocet 5-325 Mg) 1 tab PO Q4HP PRN PRN Reason: PAIN LEVEL 3-6 Last Admin: 09/13/19 06:55 Dose: 1 tab Documented by: Polyethylene Glycol (Miralax) 17 gm PO DAILYP PRN PRN Reason: Constipation Potassium Chloride (Kdur) 40 meq PO UD PRN PRN Reason: Potssium is 3-3.5 Potassium Chloride (Kdur) 40 meq PO UD PRN PRN Reason: Potassium < 3 Potassium Chlor[facility] (K[facility]ur) [facility] Promethazine HCl (Phenergan) 0 mg PO Q6HP PRN PRN Reason: Nausea And Vomiting Senna (Senokot) 2 tab PO HSP PRN PRN Reason: Constipation Simvastatin (Zocor) 5 mg PO QHS [facility] Last Admin: 09/12/19 21:42 Dose: Not Given Documented by: Sodium Chloride (Saline Flush) 10 ml IV Q8 [facility] Last Admin: 09/13/19 06:58 Dose: Not Given Documented by: Medical - PN: A/P - Time Spent With Patient Total time spent is greater than 50% in coordination of care (as documented) at patient's floor/unit and/or counseling patient: - Narrative A/P Narrative: A: *Acute on chronic LBP, Intractable: Recent T7 vertebroplasty -CT with new compression fracture T6 *Ceftriaxone: *Generalized weakness/deconditioning/debility: *COPD (requires 1-2L O2@night): *h/o diastolic CHF: -follows with Dr. Orosco, is on toprol and lasix -echo with good EF but diastolic dysfxn, biatrial dilation, mod MR, Pulm HTN *Afib: on Eliquis and Toprol *Obesity: *CKD III: *anemia, chronic: *Anxiety/Depression: P: -Dr. Ruano consulted -lidoderm patch, Fentanyl patch (increased dose), robaxin prn, oxycodone or IV dilauddid for breakthrough, Tylenol prn -per daughter, narcotics do not seem to typically take effect with her, usually requires higher doses -Abx, pending UC -prn O2, prn nebs, home IH's -cont BB/lasix -bowel regimen -pt/ot -CM for placement -ppx: home eliquis DNR
[2019-09-13] MEDS: IPRATROPIUM/ALBUTEROL 3 ML AMPUL.NEB NEB PRN (07:24)
[2019-09-13] MEDS ORDERED: RESTFUL LEGS SL PRN ×2 (09:30→21:00)
[2019-09-13] MEDS: ONDANSETRON 4 MG/2 ML VIAL IV PRN (09:31)
[2019-09-13] MEDS ORDERED: fentaNYL 25 MCG PATCH TOPICAL SCH (10:00)
[2019-09-13] MEDS: DOCUSATE SODIUM 100 MG CAPSULE PO SCH ×2 (10:06→20:41)
[2019-09-13] MEDS: APIXABAN 5 MG TABLET PO SCH ×2 (10:06→20:41)
[2019-09-13] MEDS: METOPROLOL SUCCINATE 50 MG TAB.XL.24H PO SCH ×2 (10:06→20:41)
[2019-09-13] MEDS: LIDOCAINE PATCH TOPICAL SCH (10:06)
[2019-09-13] MEDS: FUROSEMIDE 20 MG TABLET PO SCH (10:06)
[2019-09-13] MEDS: FLUTICASONE INH SCH (10:07)
[2019-09-13] MEDS: VILANTEROL INH SCH (10:07)
[2019-09-13] MEDS: CALCIUM W/VIT D3 500 MG TABLET PO SCH (10:07)
[2019-09-13] MEDS: VIT A,C & E/LUTEIN/MINERALS TABLET PO SCH ×2 (10:07→20:42)
[2019-09-13] MEDS: POTASSIUM CHLORIDE 20 MEQ TABLET PO SCH (10:08)
[2019-09-13] MEDS: fentaNYL 25 MCG PATCH TOPICAL SCH (11:52)
[2019-09-13] MEDS: HYDROmorphone 2 MG/ML VIAL IV PRN ×3 (11:58→23:00)
[2019-09-13] MEDS: fentaNYL 12 MCG PATCH TOPICAL SCH (11:59)
[2019-09-13] MEDS: cefTRIAXone 1 GM VIAL IV SCH (15:56)
[2019-09-13] MEDS: LORazepam 0.5 MG TABLET PO PRN (20:41)
[2019-09-13] MEDS: SIMVASTATIN 10 MG TABLET PO SCH (20:42)
[2019-09-14] MEDS: oxyCODONE/APAP 5/325MG TABLET PO PRN ×6 (01:24→23:50)
[2019-09-14] MEDS: HYDROmorphone 2 MG/ML VIAL IV PRN ×2 (04:17→09:18)
[2019-09-14] MEDS: 0.9 % SODIUM CHLORIDE 10 ML SYRINGE IV SCH ×3 (04:19→20:23)
--- NOTE | 2019-09-14 07:04 | Internal Med Progress Note ---
Medical - PN: Subj Patient information: Note initiated : 09/14/19 at 7:00 am Service Date, if different from initiated Date: [] Patient: Lana Leavitt 89 y/o F admitted on 09/12/19 for poss UTI, possible back fx. Chief Complaint: [] Interval history: Ms. Leavitt is a 89 year old F Since the ED with increased urinary frequency generalized weakness and inability to care for self and increased low back pain. She had vertebroplasty 3 weeks ago for T7 compression fracture and pain subsequently improved but then worsened again. No recent falls or trauma or injury. Family concerned with urinary tract infection or more fractures. Family unable to take care of patient at home. She was at a rehab facility recently but was only there for a week because of insurance issues. CT thoracic spine with T6 compression fracture not present on previous imaging in early August. She has some chills but no fevers. She alternates with constipation diarrhea. No shortness of breath or coughing. Case and CT findings were discussed with Dr. Ruano. 1 L of oxygen at night. She did not tolerate the TLSO brace. Her is unable to care for her at home. 09/13 Was able to sleep last night. She still has continued back pain. Fentanyl patch restarted this morning, still having pain. Some nausea no vomiting. Increase fentanyl patch PRN IV Dilaudid as that seems to help the most acutely. 09/14 Pain seems better controlled yesterday with increase titration of pain medicat ions but this morning seems to have increased pain again. Family at bedside. May need further adjustment of pain medications. Review of Systems: denies headache/fever/chills/nausea/vomiting/chest or abdominal pain/cough/dyspnea/diarrhea. Otherwise see above. - Constitutional Vitals: Vital Signs Temp Pulse Resp BP Pulse Ox 98.4 F 78 18 108/71 100 09/14/19 04:00 09/14/19 04:00 09/14/19 04:00 09/14/19 04:00 09/14/19 04:00 Period Temp Pulse Resp BP Sys/Ding Pulse Ox Last 24 Hr 97.4 F-98.4 F 78-103 16-20 84-120/54-77 93-100 Intake and Output 09/13/19 09/14/19 09/14/19 21:59 05:59 13:59 Intake Total 240 450 Output Total 1000 550 Balance -760 -100 Weight 75.432 kg Intake & Output: Intake & Output 09/13/19 09/14/19 09/14/19 21:59 05:59 13:59 Intake Total 240 450 Output Total 1000 550 Balance -760 -100 Weight 75.432 kg Intake: Oral 240 450 Output: Urine Catheter Amount 1000 550 Other: Meal Dinner Percent of Meal Consumed 25% Feeding Ability Assist with Tray Set Up Urine Color Pale Bright Yellow Fem Cath Bright Yellow Urine Odor Normal Exam: General: Alert, Awake, No acute Distress, obese Eyes/N/T: EOMI, Head/Neck: neck supple, CV: irreg irreg, No murmurs, Pulm: no wheezing currently, no rales Abd: soft, nontender, +BS x4 Ext: no clubbing/cyanosis, mild b/l LE edema Neuro: Alert, no focal deficits, moves all extremities, Skin: warm/dry Medical - PN: Obj Da - Labs CBC & Chem 7: 09/13/19 04:10 09/14/19 04:30 Labs: Abnormal Lab Results 09/13/19 09/13/19 09/12/19 04:10 04:10 14:54 RBC 3.72 L Hgb 10.7 L Hct 32.7 L RDW 15.5 H Lymph # (Auto) 1.2 L Chloride 93 L Glucose 110 H Lactate Dehydrogenase 294 H Urine Protein Urine Ketones Ur Leukocyte Esterase Urine WBC Amorphous Crystals 09/12/19 09/12/19 14:54 12:46 RBC 3.83 L Hgb 10.9 L Hct 33.3 L RDW 15.9 H Lymph # (Auto) 1.2 L Chloride Glucose Lactate Dehydrogenase Urine Protein 30 A Urine Ketones 20 A Ur Leukocyte Esterase 25 A Urine WBC 17 H Amorphous Crystals Few A Meds: Medications Acetaminophen (Tylenol) 650 mg PO Q6HP PRN PRN Reason: PAIN/FEVER > 101 Last Admin: 09/13/19 09:36 Dose: 650 mg Documented by: Albuterol/Ipratropium (Duoneb) 3 ml NEB Q4HP PRN PRN Reason: Shortness Of Breath Last Admin: 09/13/19 07:24 Dose: 3 ml Documented by: Apixaban (Eliquis) 5 mg PO BID [facility] Last Admin: 09/13/19 20:41 Dose: 5 mg Documented by: Calcium/Vitamin D (Calcium W/Vit D3) 500 mg PO DAILY [facility] Last Admin: 09/13/19 10:07 Dose: Not Given Documented by: Ceftriaxone Sodium (Rocephin) 1 gm IV DAILY [facility] Last Admin: 09/13/19 15:56 Dose: 1 gm Documented by: Docusate Sodium (Colace) 100 mg PO BID [facility] Last Admin: 09/13/19 20:41 Dose: 100 mg Documented by: Fentanyl (Duragesic) 25 mcg TOPICAL Q72H [facility] Last Admin: 09/13/19 11:52 Dose: Not Given Documented by: Fentanyl (Duragesic) 12 mcg TOPICAL Q72H [facility] Last Admin: 09/13/19 11:59 Dose: 12 mcg Documented by: Furosemide (Lasix) 40 mg PO DAILY [facility] Last Admin: 09/13/19 10:06 Dose: 40 mg Documented by: Hydromorphone HCl (Dilaudid) 0.5 - 0.75 mg IV Q2HP PRN; Protocol PRN Reason: Per Pain Protocol Last Admin: 09/14/19 04:17 Dose: 0.5 mg Documented by: Potassium Chloride 40 meq/ (Dextrose) 520 mls @ 130 mls/hr IV UD PRN PRN Reason: Potassium < 3 Magnesium Sulfate (Magnesium Sulfate) 2 gm in 50 mls @ 50 mls/hr IV UD PRN PRN Reason: Magnesium </= 1.6 Lidocaine (Lidoderm) 1 patch TOPICAL DAILY@1000 [facility] Last Admin: 09/13/19 10:06 Dose: 1 patch Documented by: Lorazepam (Ativan) 0.25 mg PO HSP PRN PRN Reason: Insomnia Last Admin: 09/13/19 20:41 Dose: 0.25 mg Documented by: Magnesium Citrate (Citroma) 125 ml PO DAILYP PRN PRN Reason: Constipation Methocarbamol (Robaxin) 750 mg IV Q6HP PRN PRN Reason: Muscle Spasm Last Admin: 09/13/19 16:01 Dose: 750 mg Documented by: Metoprolol Succinate (Toprol Xl) 50 mg PO BID [facility] Last Admin: 09/13/19 20:41 Dose: 50 mg Documented by: Multivitamins/Minerals (Ocuvite) 1 tab PO BID [facility] Last Admin: 11/04/19 20:42 Dose: Not Given Documented by: Ondansetron HCl (Zofran) 4 mg IV Q4HP PRN PRN Reason: Nausea And Vomiting Last Admin: 09/13/19 09:31 Dose: 4 mg Documented by: Oxycodone/Acetaminophen (Percocet 5-325 Mg) 1 tab PO Q4HP PRN PRN Reason: PAIN LEVEL 3-6 Last Admin: 09/14/19 01:24 Dose: 1 tab Documented by: Fluticasone/Vilanterol [Breo Ellipta 100-25 Mcg] Inhaler 1 dose INH DAILY [facility] Last Admin: 09/13/19 10:07 Dose: Not Given Documented by: Theraworks Topical (Cream) 1 dose TOPICAL DAILYP PRN PRN Reason: Pain Restful Legs 1 (Tablet) 1 dose SL HSP PRN PRN Reason: MUSCLE SPASTICITY Polyethylene Glycol (Miralax) 17 gm PO DAILYP PRN PRN Reason: Constipation Potassium Chloride (Kdur) 40 meq PO UD PRN PRN Reason: Potssium is 3-3.5 Potassium Chloride (Kdur) 40 meq PO UD PRN PRN Reason: Potassium < 3 Potassium Chloride (Kdur) 20 meq PO QAMCC [facility] Last Admin: 09/13/19 10:08 Dose: 20 meq Documented by: Promethazine HCl (Phenergan) 0 mg PO Q6HP PRN PRN Reason: Nausea And Vomiting Senna (Senokot) 2 tab PO HSP PRN PRN Reason: Constipation Simvastatin (Zocor) 5 mg PO QHS [facility] Last Admin: 09/13/19 20:42 Dose: Not Given Documented by: Sodium Chloride (Saline Flush) 10 ml IV Q8 [facility] Last Admin: 09/14/19 04:19 Dose: 10 ml Documented by: Medical - PN: A/P - Time Spent With Patient Total time spent is greater than 50% in coordination of care (as documented) at patient's floor/unit and/or counseling patient: - Narrative A/P Narrative: A: *Acute on chronic LBP, Intractable: Recent T7 vertebroplasty -CT with new compression fracture T6, nontraumatic *UTI?: *Generalized weakness/deconditioning/debility: *COPD (requires 1-2L O2@night): *h/o diastolic CHF: -follows with Dr. Orosco, is on toprol and lasix -echo with good EF but diastolic dysfxn, biatrial dilation, mod MR, Pulm HTN *Afib: on Eliquis and Toprol *Obesity: *CKD III: *anemia, chronic: *Anxiety/Depression: *Goals of care: pt desiring limited measures, no repeat vertebroplasty P: -lidoderm patch, Fentanyl patch (titrate up), robaxin prn, oxycodone or IV dilauddid for breakthrough, Tylenol prn -per daughter, narcotics do not seem to typically take effect with her, usually requires higher doses -Abx, pending UC -prn O2, prn nebs, home IH's -cont BB/lasix -bowel regimen -pt/ot -CM for placement -ppx: home eliquis DNR
[2019-09-14 07:32] LABS: Blood Urea Nitrogen 19 mg/dl (8-23); Calcium 8.9 mg/dl (8.6-10.4); Carbon Dioxide 29 mmol/L (22-30); Chloride 94 mmol/L (96-108); Glomerular Filtration Rate 45; Glucose 76 mg/dL (70-105)
[2019-09-14] MEDS: POTASSIUM CHLORIDE 20 MEQ TABLET PO SCH (08:14)
[2019-09-14] MEDS: METOPROLOL SUCCINATE 50 MG TAB.XL.24H PO SCH ×2 (08:14→21:10)
[2019-09-14] MEDS: FUROSEMIDE 20 MG TABLET PO SCH (08:14)
[2019-09-14] MEDS: APIXABAN 5 MG TABLET PO SCH ×2 (08:14→20:23)
[2019-09-14] MEDS: VIT A,C & E/LUTEIN/MINERALS TABLET PO SCH ×3 (08:15→21:11)
[2019-09-14] MEDS: FLUTICASONE INH SCH (08:15)
[2019-09-14] MEDS: VILANTEROL INH SCH (08:15)
[2019-09-14] MEDS: cefTRIAXone 1 GM VIAL IV SCH (08:15)
[2019-09-14] MEDS: METHOCARBAMOL 1,000 MG/10 ML VIAL IV PRN (08:15)
[2019-09-14] MEDS: CALCIUM W/VIT D3 500 MG TABLET PO SCH (08:15)
[2019-09-14] MEDS: DOCUSATE SODIUM 100 MG CAPSULE PO SCH ×2 (08:15→20:23)
[2019-09-14] MEDS: LIDOCAINE PATCH TOPICAL SCH (09:23)
[2019-09-14] MEDS ORDERED: KETOROLAC 15 MG/ML VIAL IV ONE (09:54)
[2019-09-14] MEDS ORDERED: HYDROmorphone 2 MG/ML VIAL IV PRN (09:55)
--- NOTE | 2019-09-14 10:02 | Discharge Summary ---
Medical - DS: Prov Patient information: Note initiated : 09/14/19 at 9:55 am Service Date, if different from initiated Date: [] Patient: Lana Leavitt 89 y/o F admitted on 09/12/19 for poss UTI, possible back fx. Chief Complaint: [] Date of admission: 09/12/19 19:12 Discharge date: 09/15/19 Primary care physician: Mikki Huang Consults: 09/12/19 16:59 Consult to Physician [CONS] Stat Comment: Consulting Provider: Darren Wilson Reason For Exam: Physician to Consult 09/12/19 19:31 Consult to Physician [CONS] Routine Comment: intractable back pain, T6 fx Consulting Provider: Maurice Ruano Reason For Exam: Physician to Consult Medical - DS: Meds - Discharge Medications Prescriptions: morphine 8 - 12 mg SL Q3HP PRN #30 ml PRN Reason: Per Pain Protocol Prescription Printed LORazepam [Ativan] 0.25 mg PO TIDP PRN #12 tab PRN Reason: Insomnia Prescription Printed Docusate Sodium [Colace] 100 mg PO BID #30 cap Transmission Status: Received by [facility] #[id number] fentaNYL [Duragesic] 25 mcg TOPICAL Q72H #4 patch Prescription Printed Polyethylene Glycol 3350 [Miralax] 17 gm PO DAILYP PRN #30 packet PRN Reason: Constipation Transmission Status: Received by [facility] #[id number] oxyCODONE/APAP [Percocet 5-325 mg] 1 - 2 tab PO Q4HP PRN #40 tab PRN Reason: Pain Level 3-6 Prescription Printed Methocarbamol [Robaxin] 750 mg PO Q6HP PRN #20 tab PRN Reason: Muscle Spasm Transmission Status: Received by [facility] #[id number] Active and Home Medications: Home Medications apixaban 5 mg tablet 5 mg PO BID 02/09/19 [History Confirmed 09/13/19 Last Taken 09/12/19 09:00] metoprolol succinate 50 mg tablet,extended release 24 hr 50 mg PO BID 02/09/19 [History Confirmed 09/13/19 Last Taken 09/12/19 09:00] simvastatin 10 mg tablet 5 mg PO QHS 02/09/19 [History Confirmed 09/13/19 Last Taken 09/11/19 21:00] Ondansetron [Zofran ODT] 4 mg SL Q4-6HP PRN #7 tab 08/12/19 [Rx Confirmed 09/12/19 Last Taken 08/11/19 08:00] traMADol [Ultram] 50 mg PO Q6HP PRN #10 tab 08/12/19 [Rx Confirmed 09/12/19 Last Taken 08/10/19 10:00] Calcium Carbonate/Vitamin D3 [Calcium 600 + Vit D Tablet] 1 tab PO DAILY 08/16/19 [History Confirmed 09/13/19 Last Taken 09/12/19 09:00] Fluticasone/Vilanterol [Breo Ellipta 100-25 Mcg INH] 1 inh INH QAM 08/16/19 [History Confirmed 09/13/19 Last Taken 09/12/19 09:00] Furosemide [Lasix] 40 mg PO DAILY 08/16/19 [History Confirmed 09/13/19 Last Taken 09/12/19 09:00] Potassium Chloride [Kdur] 20 meq PO DAILY 08/16/19 [History Confirmed 09/13/19 Last Taken 09/12/19 09:00] Restful Legs 1 tab SL QHS PRN 08/16/19 [History Confirmed 09/12/19 Last Taken 08/15/19 20:00] Theraworks 2 applic TOPICAL PRN PRN 08/16/19 [History Confirmed 09/12/19 Last Taken 08/15/19 20:00] Vit C/Vit E AC/Lut/Copper/Zinc [Preservision Lutein Softgel] 1 cap PO BID 08/16/19 [History Confirmed 09/13/19 Last Taken 09/12/19 09:00] Acetaminophen [Tylenol Extra Strength] 500 mg PO Q4H #60 tab 08/20/19 [Rx Confirmed 09/12/19 Last Taken Unknown] Lidocaine [Lidoderm] 1 patch TOPICAL DAILY@1000 #20 patch 08/20/19 [Rx Confirmed 09/13/19 Last Taken 09/12/19 09:00] Magnesium Citrate [Citroma] 125 ml PO DAILYP PRN oral.sabrina 08/20/19 [Rx Confirmed 09/12/19 Last Taken Unknown] Sennosides [Senokot] 2 tab PO HSP PRN tab 08/20/19 [Rx Confirmed 09/12/19 Last Taken Unknown] fentaNYL [Duragesic] 25 mcg TOPICAL Q72H #5 patch 08/20/19 [Rx Confirmed 09/13/19 Last Taken 09/07/19 21:00] LORazepam [Ativan] 0.25 mg PO HSP PRN 09/12/19 [History Confirmed 09/13/19 Last Taken Unknown] Methocarbamol [Robaxin-750] 750 mg PO Q8HP PRN 09/12/19 [History Confirmed 09/13/19 Last Taken Unknown] Medical - DS: Hosp Hospital Course: Ms. Leavitt is a 89 year old F Since the ED with increased urinary frequency generalized weakness and inability to care for self and increased low back pain. She had vertebroplasty 3 weeks ago for T7 compression fracture and pain subsequently improved but then worsened again. No recent falls or trauma or injury. Family concerned with urinary tract infection or more fractures. Family unable to take care of patient at home. She was at a rehab facility recently but was only there for a week because of insurance issues. CT thoracic spine with T6 compression fracture not present on previous imaging i n early August. She has some chills but no fevers. She alternates with constipation diarrhea. No shortness of breath or coughing. Case and CT findings were discussed with Dr. Ruano. 1 L of oxygen at night. She did not tolerate the TLSO brace. Her is unable to care for her at home. 09/13 Was able to sleep last night. She still has continued back pain. Fentanyl patch restarted this morning, still having pain. Some nausea no vomiting. Increase fentanyl patch PRN IV Dilaudid as that seems to help the most acutely. 09/14 Pain seems better controlled yesterday with increase titration of pain medications but this morning seems to have increased pain again. Family at bedside. May need further adjustment of pain medications. 09/15 slept better. Pain better controlled. Has occasional cough but other [place] no new complaints Discharge diagnosis: aCute on chronic back pain with T6 compression fracture Secondary discharge diagnosis: Possible UTI generalized weakness deconditioning debility COPD history of diastolic heart failure A. fib obesity chronic kidney disease anemia anxiety - Time Spent with Patient Total time spent providing and/or coordinating discharge services: Greater than 30 minutes Medical - DS: Exam - Constitutional Vitals: Vital Signs Temp Pulse Resp BP Pulse Ox 09/14/19 07:56 98.1 F 92 H 18 102/64 100 09/14/19 04:00 98.4 F 78 18 108/71 100 09/13/19 23:02 97.4 F 103 H 18 112/77 98 09/13/19 19:34 98.2 F 102 H 18 116/75 97 09/13/19 16:00 98.2 F 83 18 120/62 97 09/13/19 12:00 98.2 F 88 20 84/54 93 Intake and Output 09/13/19 09/14/19 09/14/19 21:59 05:59 13:59 Intake Total 240 450 Output Total 1000 550 Balance -760 -100 Intake: Oral 240 450 Output: Urine Catheter Amount 1000 550 Other: Meal Dinner Percent of Meal Consumed 25% Feeding Ability Assist with Tray Set Up Urine Color Pale Bright Yellow Fem Cath Bright Yellow Urine Odor Normal Weight 75.432 kg Medical - DS: Data Labs on day of discharge: Labs from last 24 hours 09/14/19 04:30 Sodium 136 Potassium 4.1 Chloride 94 L Carbon Dioxide 29 Anion Gap 13.0 BUN 19 Creatinine 1.1 GFR Calculation 45 Glucose 76 Calcium 8.9 Preliminary micro results at discharge 09/12/19 12:30 Urine Culture - Preliminary Urine - Catheterized Medical - DS: A/P - Patient/Caregiver Discharge Instructions Activity: as per physical therapy Diet: Regular Diet Prescriptions: morphine 8 - 12 mg SL Q3HP PRN #30 ml PRN Reason: Per Pain Protocol Prescription Printed LORazepam [Ativan] 0.25 mg PO TIDP PRN #12 tab PRN Reason: Insomnia Prescription Printed Docusate Sodium [Colace] 100 mg PO BID #30 cap Transmission Status: Received by [facility] #[id number] fentaNYL [Duragesic] 25 mcg TOPICAL Q72H #4 patch Prescription Printed Polyethylene Glycol 3350 [Miralax] 17 gm PO DAILYP PRN #30 packet PRN Reason: Constipation Transmission Status: Received by [facility] #[id number] oxyCODONE/APAP [Percocet 5-325 mg] 1 - 2 tab PO Q4HP PRN #40 tab PRN Reason: Pain Level 3-6 Prescription Printed Methocarbamol [Robaxin] 750 mg PO Q6HP PRN #20 tab PRN Reason: Muscle Spasm Transmission Status: Received by [facility] #[id number] Other Amb Orders: Physical Therapy at Discharge - General Location: None Selected - Follow up Plan Follow up with: Mikki Huang MD [Primary Care Provider] - Disposition: Xfer SNF Prognosis: Undetermined Rehab Potential: Fair I certify that the patient requires SNF services: Yes
[2019-09-14] MEDS ORDERED: AMOXICILLIN 250 MG CAPSULE PO ONE ×2 (15:22→16:15)
[2019-09-14] MEDS: METHOCARBAMOL 750 MG TABLET PO PRN ×2 (15:23→22:15)
[2019-09-14] MEDS: ONDANSETRON 4 MG/2 ML VIAL IV PRN (17:11)
[2019-09-14] MEDS: AMOXICILLIN 250 MG CAPSULE PO SCH (20:23)
[2019-09-14] MEDS: SIMVASTATIN 10 MG TABLET PO SCH (20:23)
[2019-09-14] MEDS: LORazepam 0.5 MG TABLET PO PRN (22:15)
[2019-09-14] MEDS: ACETAMINOPHEN 325 MG TABLET PO PRN (22:20)
[2019-09-15] MEDS: oxyCODONE/APAP 5/325MG TABLET PO PRN ×5 (04:23→21:51)
[2019-09-15] MEDS: METHOCARBAMOL 750 MG TABLET PO PRN ×3 (04:24→20:07)
[2019-09-15] MEDS ORDERED: morphine 20 MG/ML ORAL.CONC SL PRN ×3 (07:00→12:00)
--- NOTE | 2019-09-15 07:00 | Internal Med Progress Note ---
Medical - PN: Subj Patient information: Note initiated : 09/15/19 at 6:59 am Service Date, if different from initiated Date: [] Patient: Lana Leavitt 89 y/o F admitted on 09/12/19 for poss UTI, possible back fx. Chief Complaint: [] Interval history: Ms. Leavitt is a 89 year old F Since the ED with increased urinary frequency generalized weakness and inability to care for self and increased low back pain. She had vertebroplasty 3 weeks ago for T7 compression fracture and pain subsequently improved but then worsened again. No recent falls or trauma or injury. Family concerned with urinary tract infection or more fractures. Family unable to take care of patient at home. She was at a rehab facility recently but was only there for a week because of insurance issues. CT thoracic spine with T6 compression fracture not present on previous imaging in early August. She has some chills but no fevers. She alternates with constipation diarrhea. No shortness of breath or coughing. Case and CT findings were discussed with Dr. Ruano. 1 L of oxygen at night. She did not tolerate the TLSO brace. Her is unable to care for her at home. 09/13 Was able to sleep last night. She still has continued back pain. Fentanyl patch restarted this morning, still having pain. Some nausea no vomiting. Increase fentanyl patch PRN IV Dilaudid as that seems to help the most acutely. 09/14 Pain seems better controlled yesterday with increase titration of pain medicat ions but this morning seems to have increased pain again. Family at bedside. May need further adjustment of pain medications. 09/15 slept better. Pain better controlled. Has occasional cough but other guard[place] no new complaints Review of Systems: denies headache/fever/chills/nausea/vomiting/chest or abdominal pain/cough/dyspnea/diarrhea. Otherwise see above. - Constitutional Vitals: Vital Signs Temp Pulse Resp BP Pulse Ox 97.8 F 88 22 92/65 100 09/15/19 03:25 09/15/19 03:25 09/15/19 03:25 09/15/19 03:25 09/15/19 03:25 Period Temp Pulse Resp BP Sys/Ding Pulse Ox Last 24 Hr 97.4 F-98.5 F 74-96 16-24 90-102/55-65 96-100 Intake and Output 09/14/19 09/15/19 09/15/19 21:59 05:59 13:59 Intake Total 150 Output Total 300 400 Balance -300 -250 Weight 75.705 kg Intake & Output: Intake & Output 09/14/19 09/15/19 09/15/19 21:59 05:59 13:59 Intake Total 150 Output Total 300 400 Balance -300 -250 Weight 75.705 kg Intake: Oral 150 Output: Urine Catheter Amount 300 400 Other: Urine Appearance Cloudy Fem Cath Sediment Urine Color Bright Yellow Urine Odor Strong Stool Size Moderate Small Stool Color Brown Brown Stool Consistency Soft Loose # Bowel Movements 1 1 Exam: General: Alert, Awake, No acute Distress, obese Eyes/N/T: EOMI, Head/Neck: neck supple, CV: irreg irreg, No murmurs, Pulm: no wheezing/rhonchi/rales Abd: soft, nontender, +BS x4 Ext: no clubbing/cyanosis, mild b/l LE edema Neuro: Alert, no focal deficits, moves all extremities, Skin: warm/dry Medical - PN: Obj Da - Labs CBC & Chem 7: 09/13/19 04:10 09/14/19 04:30 Labs: Abnormal Lab Results 09/14/19 09/13/19 09/13/19 04:30 04:10 04:10 RBC 3.72 L Hgb 10.7 L Hct 32.7 L RDW 15.5 H Lymph # (Auto) 1.2 L Chloride 94 L 93 L Glucose Lactate Dehydrogenase 294 H Urine Protein Urine Ketones Ur Leukocyte Esterase Urine WBC Amorphous Crystals 09/12/19 09/12/19 09/12/19 14:54 14:54 12:46 RBC 3.83 L Hgb 10.9 L Hct 33.3 L RDW 15.9 H Lymph # (Auto) 1.2 L Chloride Glucose 110 H Lactate Dehydrogenase Urine Protein 30 A Urine Ketones 20 A Ur Leukocyte Esterase 25 A Urine WBC 17 H Amorphous Crystals Few A Meds: Medications Acetaminophen (Tylenol) 650 mg PO Q6HP PRN PRN Reason: PAIN/FEVER > 101 Last Admin: 09/14/19 22:20 Dose: 650 mg Documented by: Albuterol/Ipratropium (Duoneb) 3 ml NEB Q4HP PRN PRN Reason: Shortness Of Breath Last Admin: 09/13/19 07:24 Dose: 3 ml Documented by: Amoxicillin (Amoxicillin) 500 mg PO TID [facility] Last Admin: 09/14/19 20:23 Dose: 500 mg Documented by: Apixaban (Eliquis) 5 mg PO BID [facility] Last Admin: 09/14/19 20:23 Dose: 5 mg Documented by: Calcium/Vitamin D (Calcium W/Vit D3) 500 mg PO DAILY [facility] Last Admin: 09/14/19 08:15 Dose: Not Given Documented by: Docusate Sodium (Colace) 100 mg PO BID [facility] Last Admin: 09/14/19 20:23 Dose: 100 mg Documented by: Fentanyl (Duragesic) 25 mcg TOPICAL Q72H [facility] Last Admin: 09/13/19 11:52 Dose: Not Given Documented by: Fentanyl (Duragesic) 12 mcg TOPICAL Q72H [facility] Last Admin: 09/13/19 11:59 Dose: 12 mcg Documented by: Furosemide (Lasix) 40 mg PO DAILY [facility] Last Admin: 09/14/19 08:14 Dose: 40 mg Documented by: Hydromorphone HCl (Dilaudid) 0.5 - 1 mg IV Q2HP PRN; Protocol PRN Reason: Per Pain Protocol Potassium Chloride 40 meq/ (Dextrose) 520 mls @ 130 mls/hr IV UD PRN PRN Reason: Potassium < 3 Magnesium Sulfate (Magnesium Sulfate) 2 gm in 50 mls @ 50 mls/hr IV UD PRN PRN Reason: Magnesium </= 1.6 Lidocaine (Lidoderm) 1 patch TOPICAL DAILY@1000 [facility] Last Admin: 09/14/19 09:23 Dose: 1 patch Documented by: Lorazepam (Ativan) 0.25 mg PO HSP PRN PRN Reason: Insomnia Last Admin: 09/14/19 22:15 Dose: 0.25 mg Documented by: Magnesium Citrate (Citroma) 125 ml PO DAILYP PRN PRN Reason: Constipation Methocarbamol (Robaxin) 750 mg PO Q6HP PRN PRN Reason: Muscle Spasm Last Admin: 09/15/19 04:24 Dose: 750 mg Documented by: Metoprolol Succinate (Toprol Xl) 50 mg PO BID [facility] Last Admin: 09/14/19 21:10 Dose: Not Given Documented by: Multivitamins/Minerals (Ocuvite) 1 tab PO BID [facility] Last Admin: 09/14/19 21:11 Dose: Not Given Documented by: Ondansetron HCl (Zofran) 4 mg IV Q4HP PRN PRN Reason: Nausea And Vomiting Last Admin: 09/14/19 17:11 Dose: 4 mg Documented by: Oxycodone/Acetaminophen (Percocet 5-325 Mg) 1 - 2 tab PO Q4HP PRN PRN Reason: PAIN LEVEL 3-6 Last Admin: 09/15/19 04:23 Dose: 2 tab Documented by: Fluticasone/Vilanterol [Breo Ellipta 100-25 Mcg] Inhaler 1 dose INH DAILY [facility] Last Admin: 09/14/19 08:15 Dose: Not Given Documented by: Theraworks Topical (Cream) 1 dose TOPICAL DAILYP PRN PRN Reason: Pain Restful Legs 1 (Tablet) 1 dose SL HSP PRN PRN Reason: MUSCLE SPASTICITY Polyethylene Glycol (Miralax) 17 gm PO DAILYP PRN PRN Reason: Constipation Potassium Chloride (Kdur) 40 meq PO UD PRN PRN Reason: Potssium is 3-3.5 Potassium Chloride (Kdur) 40 meq PO UD PRN PRN Reason: Potassium < 3 Potassium Chloride (Kdur) 20 meq PO QAMCC [facility] Last Admin: 09/14/19 08:14 Dose: 20 meq Documented by: Promethazine HCl (Phenergan) 0 mg PO Q6HP PRN PRN Reason: Nausea And Vomiting Senna (Senokot) 2 tab PO HSP PRN PRN Reason: Constipation Simvastatin (Zocor) 5 mg PO QHS [facility] Last Admin: 09/14/19 20:23 Dose: 5 mg Documented by: Sodium Chloride (Saline Flush) 10 ml IV Q8 [facility] Last Admin: 09/14/19 20:23 Dose: 10 ml Documented by: Medical - PN: A/P - Time Spent With Patient Total time spent is greater than 50% in coordination of care (as documented) at patient's floor/unit and/or counseling patient: - Narrative A/P Narrative: A: *Acute on chronic LBP, Intractable: Recent T7 vertebroplasty -CT with new compression fracture T6, nontraumatic *UTI(enterococcus): *Generalized weakness/deconditioning/debility: *COPD (requires 1-2L O2@night): *h/o diastolic CHF: -follows with Dr. Campton, is on toprol and lasix -echo with good EF but diastolic dysfxn, biatrial dilation, mod MR, Pulm HTN *Afib: on Eliquis and Toprol *Obesity: *CKD III: *anemia, chronic: *Anxiety/Depression: *Goals of care: pt desiring limited measures, no repeat vertebroplasty -pt/family have met with hospice and are moving towards a palliative approach to care. P: -lidoderm patch, Fentanyl patch (titrate up), robaxin prn, oxycodone or IV dilauddid(try to switch IV dilaudid to SL morphine) for breakthrough, Tylenol prn -per daughter, narcotics do not seem to typically take effect with her, usually requires higher doses -Amoxicillin -prn O2, prn nebs, home IH's -cont BB/lasix -bowel regimen -pt/ot -CM for placement -Hospice has met with family -ppx: home eliquis DNR
[2019-09-15] MEDS: 0.9 % SODIUM CHLORIDE 10 ML SYRINGE IV SCH ×3 (07:19→23:40)
[2019-09-15] MEDS: FUROSEMIDE 20 MG TABLET PO SCH (08:01)
[2019-09-15] MEDS: VIT A,C & E/LUTEIN/MINERALS TABLET PO SCH (08:01)
[2019-09-15] MEDS: POTASSIUM CHLORIDE 20 MEQ TABLET PO SCH (08:01)
[2019-09-15] MEDS: AMOXICILLIN 250 MG CAPSULE PO SCH ×3 (08:01→20:07)
[2019-09-15] MEDS: DOCUSATE SODIUM 100 MG CAPSULE PO SCH ×2 (08:01→20:07)
[2019-09-15] MEDS: APIXABAN 5 MG TABLET PO SCH ×2 (08:02→20:07)
[2019-09-15] MEDS: CALCIUM W/VIT D3 500 MG TABLET PO SCH (08:02)
[2019-09-15] MEDS: VILANTEROL INH SCH (08:29)
[2019-09-15] MEDS: FLUTICASONE INH SCH (08:29)
[2019-09-15] MEDS: METOPROLOL SUCCINATE 50 MG TAB.XL.24H PO SCH ×2 (08:29→20:08)
[2019-09-15] MEDS ORDERED: AMOXICILLIN 250 MG CAPSULE PO SCH (09:00)
[2019-09-15] MEDS: LIDOCAINE PATCH TOPICAL SCH (10:42)
[2019-09-15] MEDS: LORazepam 0.5 MG TABLET PO PRN (17:28)
[2019-09-15] MEDS: IPRATROPIUM/ALBUTEROL 3 ML AMPUL.NEB NEB PRN (19:29)
[2019-09-15] MEDS: SIMVASTATIN 10 MG TABLET PO SCH (20:08)
[2019-09-16] MEDS: METHOCARBAMOL 750 MG TABLET PO PRN ×2 (01:50→08:21)
[2019-09-16] MEDS: oxyCODONE/APAP 5/325MG TABLET PO PRN ×3 (01:50→09:38)
[2019-09-16] MEDS: LORazepam 0.5 MG TABLET PO PRN ×2 (01:50→08:21)
[2019-09-16] MEDS: 0.9 % SODIUM CHLORIDE 10 ML SYRINGE IV SCH (05:20)
[2019-09-16] MEDS: POTASSIUM CHLORIDE 20 MEQ TABLET PO SCH (08:06)
[2019-09-16] MEDS: FUROSEMIDE 20 MG TABLET PO SCH (08:06)
[2019-09-16] MEDS: METOPROLOL SUCCINATE 50 MG TAB.XL.24H PO SCH (08:06)
[2019-09-16] MEDS: APIXABAN 5 MG TABLET PO SCH (08:07)
[2019-09-16] MEDS: DOCUSATE SODIUM 100 MG CAPSULE PO SCH (08:07)
[2019-09-16] MEDS: AMOXICILLIN 250 MG CAPSULE PO SCH (08:07)
[2019-09-16] MEDS: LIDOCAINE PATCH TOPICAL SCH (08:08)
[2019-09-16] MEDS: fentaNYL 12 MCG PATCH TOPICAL SCH (08:08)
[2019-09-16] MEDS: fentaNYL 25 MCG PATCH TOPICAL SCH (08:08)
[2019-09-16] MEDS: FLUTICASONE INH SCH (08:09)
[2019-09-16] MEDS: VILANTEROL INH SCH (08:09)
== END 2019-09-16 09:50 | DRG 543 ==
LOC: ED 10:02 → ICU 19:12 → MEDSUR 09-13 10:42
PROVIDERS: ADMIT Internal Medicine; ATTEND Internal Medicine